=== PATIENT | female | born 1980 | race Caucasian/White ===

== ENCOUNTER 2023-07-19 11:23 | Emergency (ER) | payer BC, SELFPAY ==
[2023-07-19] VITALS (16 sets, daily range): BP systolic 128–164; BP diastolic 70–93; PULSE 95–123; RESP 12–27; O2SAT 95–99; BMI 49.4
--- NOTE | 2023-07-19 11:39 | ECG_ITS ---
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
--- NOTE | 2023-07-19 11:39 | XR_ITS ---
The [address] [address] Patient Name: LINDA GONZALEZ MRN: [id number] date: 1980 Sex: F Assigned Patient Location: ED.MAIN Current Patient Location: ER Accession/Order Number: [id number] Exam Date: 07/19/2023 12:33 Report Date: 07/19/2023 12:47 At the request of: LISA MARES Procedure: XR chest 1V EXAMINATION: XR chest 1V 07/19/2023 9:46 AM PST HISTORY: CP TECHNIQUE: Single frontal view of the chest acquired. COMPARISONS: None. FINDINGS: Lines/tubes/other: None. Heart and mediastinum: The heart and the mediastinum are within normal limits for technique. Bones: No acute osseous abnormality. Lungs: The lungs are clear. There is no evidence of pneumonia or pulmonary edema. Pleura: There is no significant pleural effusion or pneumothorax. Other: None. XR/XR chest 1V IMPRESSION: No acute cardiopulmonary abnormality. Electronically authenticated by: MARGE FRITZ Date: 07/19/2023 12:47
--- NOTE | 2023-07-19 11:39 | CT_ITS ---
The [address] [address] Patient Name: LINDA GONZALEZ MRN: [id number] date: 1980 Sex: F Assigned Patient Location: ED.MAIN Current Patient Location: Accession/Order Number: [id number] Exam Date: 07/19/2023 12:33 Report Date: 07/19/2023 12:52 At the request of: LISA MARES Procedure: CT head/brain wo con EXAM: CT head/brain wo con HISTORY: new numbness all over the right body COMPARISON: None. TECHNIQUE: Contiguous transaxial images were obtained from skull base to vertex without administration of intravenous contrast. Dose reduction: mA and/or kV are were adjusted by automated exposure control software based upon patients height and weight. FINDINGS: There is no focal scalp soft tissue swelling or acute calvarial fracture. The visualized globes and orbits are grossly normal. There is paranasal sinus mucosal thickening with partial opacification of ethmoid air cells and bilateral maxillary sinus air-fluid levels. Bilateral mastoid air cells are clear. The ventricles and sulci are normal and symmetric bilaterally. There is no intraparenchymal hemorrhage, extraaxial fluid collection, mass lesion, or acute large vessel ischemia by noncontrast CT. CT/CT head/brain wo con IMPRESSION: 1. No acute intracranial hemorrhage or acute large territory ischemia by noncontrast CT. If the patient has a focal neurologic deficit or there is clinical suspicion for acute cerebrovascular accident, brain MRI would be recommended for further evaluation. Electronically authenticated by: EDD MORTENSEN Date: 07/19/2023 12:52
[2023-07-19 11:56] LABS: Basophils Percent Auto 0.4 % (0.2-2.0); Eosinophils Absolute Auto 0.2 10^3/uL (0.0-0.7); Eosinophils Percent Auto 2.3 % (0.9-7.0); Hematocrit 46.4 % (36.0-48.0); Hemoglobin 15.4 g/dL (12.0-16.0); Immature Granulocytes Abs Auto 0.02 10^3/uL (0.00-0.03); Immature Granulocytes Pct Auto 0.2 % (0.0-0.5); Lymphocytes Absolute Auto 3.6 10^3/uL (1.2-3.8); Lymphocytes Percent Auto 34.9 % (20.5-60.0); Mean Corpuscular HGB Conc 33.2 g/dL (29.9-35.2); Mean Corpuscular Hemoglobin 30.9 pg (26.7-34.0); Mean Platelet Volume 9.3 fL (9.5-13.5); Monocytes Absolute Auto 0.6 10^3/uL (0.3-0.8); Monocytes Percent Auto 5.4 % (1.7-12.0); Neutrophils Absolute Auto 5.9 10^3/uL (1.4-6.5); Neutrophils Percent Auto 56.8 % (43.0-75.0); Platelet Count 193 10^3/uL (150-450); Red Blood Count 4.99 10^6/uL (4.20-5.40); Red Cell Distribution Width 13.1 % (11.0-15.0); White Blood Count 10.4 10^3/uL (4.0-11.0)
[2023-07-19 12:17] LABS: Alanine Aminotransferase 40 U/L (14-59); Albumin Globulin Ratio 1.1; Albumin Level 3.8 g/dL (3.4-5.0); Alkaline Phosphatase 67 U/L (46-116); Anion Gap 12.4; Aspartate Amino Transferase 19 U/L (15-37); BUN Creatinine Ratio 13.3; Bilirubin Total 0.6 mg/dL (0.2-1.0); Calcium 9.2 mg/dL (8.5-10.1); Carbon Dioxide 25.4 mmol/L (21.0-32.0); Chloride 103 mmol/L (98-107); Estimated GFR (African America >60 (>=60); Estimated GFR (Non-African Ame >60 (>=60); Globulin 3.6 g/dL; Glucose 169 mg/dL (74-106); Potassium 3.8 mmol/L (3.5-5.1); Sodium 137 mmol/L (136-145); Total Protein 7.4 g/dL (6.4-8.2); Troponin I High Sensitivity <4.0 pg/mL (4.0-51.3)
[2023-07-19 12:20] LABS: HCG Qualitative NEGATIVE (NEGATIVE)
[2023-07-19] MEDS: KETOROLAC TROMETHAMINE 30 MG/ML VIAL 15 MG IVP (12:41)
[2023-07-19] MEDS: PROMETHAZINE HCL 25 MG/ML VIAL 12.5 MG IV (12:42)
--- NOTE | 2023-07-19 13:41 | ED_ITS ---
HPI - General Adult General Chief complaint: Neuro Symptoms/Deficit Stated complaint: FACIAL/EXTREMITY WEAKNESS Time Seen by Provider: 07/19/23 11:38 Source: patient Mode of arrival: walk-in Limitations: no limitations History of Present Illness HPI narrative: Presenting to us with a history of ophthalmic migraine she apparently have an episode where she had a ocular migraine according to her telescoping of the v [email or web address]. The patient after that started having numbness and tingling around her right side of the face as well as upper and lower extremity. She was tearful and crying and feeling very anxious. The patient also had a fall yesterday but that was not related to this and she did not hit her head or anything. The patient denies any dizziness nausea vomiting or any abdominal pain she did mention having chest pain while crying. The pain was retrosternal no other complaints of dizziness or shortness of breath. Related Data Allergies Allergy/AdvReac Type Severity Reaction Status Date / Time No Known Drug Allergies Allergy Verified 07/19/23 11:31 Review of Systems ROS Status of ROS 10 or more systems reviewed and unremark able except as noted in history and below Exam Narrative Exam Narrative: Nurses notes and vital signs reviewed and patient is not hypoxic. General: Well-appearing and in no apparent distress. Skin: Warm, dry, no pallor noted. No rash. Head: Normocephalic, atraumatic. Neck: Supple, non-tender. Eye: Pupils are equal, round and EOMI. No scleral icterus. Ears, Nose, Mouth, and Throat: TM are clear, no nasal mucosal hypertrophy. Oral mucosa is moist, no posterior oropharynx erythema, uvula is mid-line Cardiovascular: Regular Rate and Rhythm without murmur, gallop or rub. Respiratory: No accessory muscle use or respiratory distress. Lungs are clear to auscultation, no wheezing, rales or rhonchi Chest Wall: no tenderness Back: No midline thoracic or lumbar vertebral tenderness. No CVA tenderness Musculoskeletal: normal ROM, no calf or popliteal tenderness, no lower extremity edema/swelling GI: Abdomen is soft, non-distended. Normal bowel sounds. No masses appreciated. No tenderness to palpation. No rebound, guarding, or rigidity noted. Neurological: A&O x4. No cranial nerve dysfunction observed. No truncal ataxia. Moves all extremities. Sensation intact. Psychiatric: Cooperative and interactive. Normal mood and affect. Constitutional Vital Signs, click to edit/add: Last Vital Signs Pulse 103 H 07/19/23 13:00 Resp 22 07/19/23 13:00 BP 142/70 H 07/19/23 12:31 Pulse Ox 95 07/19/23 12:01 O2 Del Method Room Air 07/19/23 11:31 Course Vital Signs Vital signs: Vital Signs Pulse Rate 121 H 07/19/23 11:31 Respiratory Rate 18 07/19/23 11:31 Blood Pressure 163/92 H 07/19/23 11:31 Pulse Oximetry 99 07/19/23 11:31 Oxygen Delivery Method Room Air 07/19/23 11:31 Pulse Rate 103 H 07/19/23 13:00 Respiratory Rate 22 07/19/23 13:00 Blood Pressure 142/70 H 07/19/23 12:31 Pulse Oximetry 95 07/19/23 12:01 Oxygen Delivery Method Room Air 07/19/23 11:31 Medical Decision Making MDM Narrative Medical decision making narrative: The patient EKG showing sinus rhythm with a heart rate of [address] elevation or depression. The patient open presentation with anxious she did had a CBC chemistry showing no acute pathology and her CT head as well as chest x-ray showed no acute pathology as well with a negative troponin. The patient presentation is mostly secondary to ophthalmic migraine and panic attack The patient was feeling much better after being comforted in the ER she also mentioned that she had not been evaluated by neurologist and she was to follow- up with her primary care doctor to be referred to a neurologist as outpatient The patient is to follow up with primary care physician in next 2-3 days or to return to the emergency department should any of the signs or symptoms worsen or new symptoms develop. The patient agrees with the following Diagnosis and Treatment plan and the patient will be discharged home. Lab Data Labs: Lab Results 07/19/23 Range/Units 11:45 WBC 10.4 (4.0-11.0) 10^3/uL RBC 4.99 (4.20-5.40) 10^6/uL Hgb 15.4 (12.0-16.0) g/dL Hct 46.4 (36.0-48.0) % MCV 93.0 (81.0-99.0) fL MCH 30.9 (26.7-34.0) pg MCHC 33.2 (29.9-35.2) g/dL RDW 13.1 (11.0-15.0) % Plt Count 193 (150-450) 10^3/uL MPV 9.3 L (9.5-13.5) fL Neut % (Auto) 56.8 (43.0-75.0) % Lymph % (Auto) 34.9 (20.5-60.0) % [place] % (Auto) 5.4 (1.7-12.0) % Eos % (Auto) 2.3 (0.9-7.0) % Baso % (Auto) 0.4 (0.2-2.0) % Neut # (Auto) 5.9 (1.4-6.5) 10^3/uL Lymph # (Auto) 3.6 (1.2-3.8) 10^3/uL [place] # (Auto) 0.6 (0.3-0.8) 10^3/uL Eos # (Auto) 0.2 (0.0-0.7) 10^3/uL Baso # (Auto) 0.0 (0.0-0.1) 10^3/uL Abs Immat Gran (auto) 0.02 (0.00-0.03) 10^3/uL Imm/Tot Granulo (auto) 0.2 (0.0-0.5) % Sodium 137 (136-145) mmol/L Potassium 3.8 (3.5-5.1) mmol/L Chloride 103 (98-107) mmol/L Carbon Dioxide 25.4 (21.0-32.0) mmol/L Anion Gap 12.4 BUN 10.0 (7.0-18.0) mg/dL Creatinine 0.75 (0.55-1.02) mg/dL Est GFR ( Amer) >60 (>=60) Est GFR (Non-Af Amer) >60 (>=60) BUN/Creatinine Ratio 13.3 Glucose 169 H (74-106) mg/dL Calcium 9.2 (8.5-10.1) mg/dL Total Bilirubin 0.6 (0.2-1.0) mg/dL AST 19 (15-37) U/L ALT 40 (14-59) U/L Alkaline Phosphatase 67 (46-116) U/L Troponin I High Sens <4.0 L (4.0-51.3) pg/mL Total Protein 7.4 (6.4-8.2) g/dL Albumin 3.8 (3.4-5.0) g/dL Globulin 3.6 g/dL Albumin/Globulin Ratio 1.1 Serum HCG, Qual Negative (NEGATIVE) Discharge Plan Discharge Chief Complaint: Neuro Symptoms/Deficit Clinical Impression: Ocular migraine Patient Disposition: Home, Self-Care Time of Disposition Decision: 13:42 Condition: Good Instructions: Migraine Headache (ED) Stand Alone Forms: Portal Instructions Referrals: MERRY CASTILLO [Primary Care Provider] - 1 week
== END 2023-07-19 14:02 | disposition home or self-care (01) ==
PROVIDERS: Emergency Provider Emergency Medicine; PCP Family Medicine
DX: G43.B0 Ophthalmoplegic migraine, not intractable (principal); R07.9 Chest pain, unspecified
CPT/HCPCS: 36415; 70450; 71045; 80053; 84484; 84703; 85025; 93005; 99285; J1885; J2250

== ENCOUNTER 2024-01-15 06:30 | Outpatient (OUT) | payer BC, SELFPAY ==
--- OUTSIDE RECORDS SUMMARY | 2024-01-15 06:33 | XMS_ITS | CCD ---
Author Organization [facility] Care Team Providers Care Freelance Web Designer Name Role Phone SILVINA, DR FELICITAS Del Cid Attending Unavailable COOL, DR FELICITAS Del Cid Consulting Unavailable ANNA, DR SOUSA Primary Care Unavailable SILVINA, DR FELICITAS Del Cid Admitting Unavailable ANNA, DR SOUSA Admitting Unavailable ANNA, DR SOUSA Attending Unavailable ANNA, DR SOUSA Attending Unavailable ANNA, DR SOUSA Consulting Unavailable ANNA, DR SOUSA Admitting Unavailable Anna, MD Shan Miller Primary Care Provider MD Eric Michael Attending Provider Eric Michael Attending Unavailable Eric Michael Admitting Unavailable Shan Castillo Primary Care Unavailable SONG HARPER Attending Unavailable SHAN CASTILLO Attending Unavailable SHAN CASTILLO Attending Unavailable SHAN CASTILLO Referring Unavailable SHAN CASTILLO Attending Unavailable SHAN CASTILLO Attending Unavailable SHAN CASTILLO Attending Unavailable Problems Active Problems Problem Classification Problem Date Documented Da te Episodic/Chronic Anxiety disorders (1 source) Anxiety disorder, unspecified; Translations: [ANXIETY DISORDER UNSPECIFIED] Onset: 01-22-2021 Chronic Essential hypertension (1 source) Essential (primary) hypertension; Translations: [ESSENTIAL PRIMARY HYPERTENSION] Onset: 01-22-2021 Chronic Neoplasms of unspecified nature or uncertain behavior (1 source) Neoplasm of unspecified behavior of bone, soft tissue, and skin; Translations: [Neoplasm of unspecified behavior of bone, soft tissue, and skin] Onset: 02-15-2023 Episodic Nonspecific chest pain (4 sources) Chest pain, unspecified; Translations: [CHEST PAIN UNSPECIFIED] Onset: 01-19-2021 Episodic Other aftercare (1 source) Other jail (current) drug therapy; Translations: [OTH [facility] CURRENT DRUG THERAPY] Onset: 01-22-2021 Episodic Other non-traumatic joint disorders (1 source) Pain in right shoulder; Translations: [PAIN IN RIGHT SHOULDER] Onset: 01-22-2021 Episodic Substance-related disorders (1 source) Nicotine dependence, cigarettes, uncomplicated; Translations: [NICOTINE DEPEND CIGARETTES UNCOMP] Onset: 01-22-2021 Chronic Past or Other Problems Problem Classification Problem Date Documented Da te Episodic/Chronic Immunizations and screening for infectious disease (4 sources) Contact with and (suspected) exposure to other viral communicable diseases; Translations: [CONTCT EXPS OTH VIRL COMMUNICABL DZ] Onset: 05-14-2020 Episodic Other nervous system disorders (1 source) Parageusia; Translations: [PARAGEUSIA] Onset: 05-19-2020 Episodic Results Test Name Value Interpretation Reference Range Facility BI MAMMOGRAM SCREENING TOMOS YJOHNIS BILATERALon 07-19-2023 BI MAMMOGRAM SCREENING TOMOSYNTHESIS BILATERAL This is a summary report. The complete report is available in the patient's medical record. If you cannot access the medical record, please contact the sending organization for a detailed fax or copy. EXAMINATION: BI MAMMOGRAM SCREENING TOMOSYNTHESIS BILATERAL CLINICAL HISTORY: screening COMPARISON: None. Baseline. RESULT: 3-D tomosynthesis imaging of the bilateral breasts was performed. Density: Scattered fibroglandular density [2] There are no suspicious masses or asymmetries, areas of architectural distortion or suspicious areas of microcalcifications. IMPRESSION: BIRADS 1 - Negative Recommended follow-up: Routine Screening Mamm Board Certified Radiologists. Accredited by the ACR and FDA. MAMMOGRAPHY IS VERY IMPORTANT TO YOUR HEALTH. THE [place] [employer]ET[employer] GUIDELINES RECOMMEND THAT WOMEN 40 YEARS OF AGE AND OLDER SHOULD HAVE A MAMMOGRAM EVERY YEAR. A REMINDER LETTER WILL BE SENT AT THE APPROPRIATE TIME. THIS FACILITY UTILIZES A REMINDER SYSTEM TO ENSURE ALL PATIENTS RECEIVE REMINDER NOTIFICATIONS AT THE APPROPRIATE TIME BASED ON THE RECOMMENDATIONS OF THIS EXAM. THIS INCLUDES REMINDERS FOR ROUTINE SCREENING MAMMOGRAMS, DIAGNOSTIC MAMMOGRAMS IN WHICH THE PATIENT IS ASKED TO RETURN FOR ADDITIONAL VIEWS, OR OTHER BREAST IMAGING INTERVENTIONS WHEN APPROPRIATE. THE PATIENT WILL BE PLACED IN THE APPROPRIATE REMINDER SYSTEM INCLUDING A REMINDER AT THE APPROPRIATE TIME FOR ANY PENDING ADDITIONAL VIEWS. ELECTRONICALLY SIGNED BY: Trey Lyons MD Normal Not Available Sav 02-15-2023 L ---- Specimen: [id number] Received: 02/16/23 Status: ROSA Marcial Num: [id number] Spec Type: Surgical Subm Dr: Eric Michael MD Tissues: A Skin-Other than Cyst, tag, debridement or plastic repair (LT LOWER LEG) Procedures: MART 1/PELON A/2, HE/5, Gross/Micro L4, CD10/2, CD68/2, HMB45/2 Age/ Patient Sex Location Account Attending Physician Millicent Gonzalez 42/F [place] [id number] Eric Michael MD SPEC NUM: [id number] RECD: 02/16/23 STATUS: ROSA MARCIAL NUM: [id number] JEROD: 08/23/23-[address]: Eric Michael MD ENTERED: 02/16/[address] [facility] DR: SPEC TYPE: Surgical DEPT: S ORDERED: MART 1/PELON A/2, HE/5, Gross/Micro L4, CD10/2, CD68/2, HMB45/2 ORDERED: MART 1/PELON A/2, HE/5, Gross/Micro L4, CD10/2, CD68/2, HMB45/2 Pathological Diagnosis Skin lesion, left lower leg, excision: - 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 The second tissue contains a 0.5 x 0.5 cm area of depression. The tissues are sectioned. Entirely submitted in two cassettes labeled A1-A2. Specimen: [id number] Received: 02/16/23 Status: ROSA Aniket Num: [id number] Spec Type: Surgical Subm Dr: Eric Michael MD Tissues: A Skin-Other than Cyst, tag, debridement or plastic repair (LT LOWER LEG) Procedures: MART 1/PELON A/2, HE/5, Gross/Micro L4, CD10/2, CD68/2, HMB45/2 Patient: Millicent Gonzalez [id number] (Continued) Specimen: [id number] Received: 02/16/23 (Continued) Signed (signature on file) Jae Felipe MD 02/23/23 1725 Specimen: [id number] Received: 02/16/23 Status: ROSA Marcial Num: [id number] Spec Type: Surgical Subm Dr: Eric Michael MD Tissues: A Skin-Other than Cyst, tag, debridement or plastic repair (LT LOWER LEG) Procedures: MART 1/PELON A/2, HE/5, Gross/Micro L4, CD10/2, CD68/2, HMB45/2 Patient: Millicent Gonzalez [id number] (Continued) Specimen: [id number] Received: 02/16/23 (Continued) Microscopic Description Two H E slides reviewed. The microscopic examination confirms the diagnosis. CPT Codes 85449 Specimen: [id number] Received: 02/16/23 Status: ROSA Marcial Num: [id number] Spec Type: Surgical Subm Dr: Eric Michael MD Tissues: A Skin-Other than Cyst, tag, debridement or plastic repair (LT LOWER LEG) Procedures: MART 1/PELON A/2, HE/5, Gross/Micro L4, CD10/2, CD68/2, HMB45/2 Patient: Millicent Gonzalez [id number] (Continued) Signed (signature on file) Jae Felipe MD 02/23/23 1725 Normal [facility] Hemoglobin A1Con 06-02-2021 EAG 142.72 Normal [facility] Comment on above: Performed By: #### A 1C #### [facility] [address] [place], [place] [id number] HbA1c (Bld) [Mass fraction] 6.6 % High 4.0-6.0 [facility] Comment on above: Performed By: #### A 1C #### [facility] [address], [place] [id number] CARDIAC FELICITAS ADMITon 021 CK [Catalytic activity/Vol] 85 U/L Normal 30-135 [facility] Comment on above: Performed By: #### C LANCE, CMADM #### [facility] [address] [place], [place] [address] [place] Espinoza CK.MB [Mass/Vol] 0.58 ng/mL Normal <=2.37 [facility] Comment on above: Performed By: #### C LANCE, CMADM #### [facility] [address] [place], [place] [address] [place] Espinoza HSTROP <4.0 Normal 4.0-35.5 [facility] Comment on above: Result Comment: CUT- OFF POINTS HAVE BEEN ESTABLISHED BASED ON THE FOURTH UNIVERSAL DEFINITIONS OF MYOCARDIAL INFARCTION. THE UPPER REFERENCE LIMIT (URL) OF TROPONIN, DEFINED THE 99TH PERCENTILE OF cTnI DISTRIBUTION IN A REFERENCE POPULATION, HAS BEEN CONFIRMED THE DECISION THRESHOLD FOR OK DIAGNOSIS. Performed By: #### C LANCE, JUSTENDM #### [facility] [address] [place] [id number] [place] Olga ALICIA 21.0 ng/mL Normal <=61.5 [facility] Comment on above: Performed By: #### C LANCE, JUSTENDM #### [facility] [address] [place], [place] [address] [place] CBC AUTO DIFFon 01-20-2021 BASO # 0.1 103/ul Normal 0.0-0.1 [facility] Comment on above: Performed By: #### C BC #### [facility] [address] [place], [place] [address] [place] Basophils/100 WBC (Bld) 0.4 % Normal 0.2-2.0 [facility] Comment on above: Performed By: #### C BC #### [facility] [address] [place], [place] [address] [place] EO # 0.2 103/ul Normal 0.0-0.7 [facility] Comment on above: Performed By: #### C BC #### [facility] [address] [place], [place] [address] [place] Eosinophils/100 WBC (Bld) 1.6 % Normal 0.9-7.0 [facility] Comment on above: Performed By: #### C BC #### [facility] [address] [place], [place] [address] [place] Erythrocyte distribution width (RBC) [Ratio] 13.2 % Normal 11.0-15.0 [facility] Comment on above: Performed By: #### C BC #### [facility] [address] [place], [place] [address] [place] Ol[place] Hematocrit (Bld) [Volume fraction] 42.6 % Normal 36.0-48.0 [facility] Comment on above: Performed By: #### C BC #### [facility] [address] [place], [place] [address] [place] Hemoglobin (Bld) [Mass/Vol] 14.1 g/dL Normal 12.0-16.0 [facility] Comment on above: Performed By: #### C BC #### [facility] [address] [place] [id number] [place] IG # 0.04 10e3/ul Critically high 0.00-0.03 [facility] Comment on above: Performed By: #### C BC #### [facility] [address] [place] [id number] [place] IG % 0.4 % Normal 0.0-0.5 [facility] Comment on above: Performed By: #### C BC #### [facility] [address] [place] [address] [place]ga LYMPH # 4.4 103/ul Critically high 1.2-3.8 [facility] Comment on above: Performed By: #### C BC #### [facility] [address] [place] [address] [place] Olga Lymphocytes/100 WBC (Bld) 39.5 % Normal 20.5-60.0 [facility] Comment on above: Performed By: #### C BC #### [facility] [address] [place], [place] [address] [place] MANUAL DIFF REQ NO Normal [facility] Comment on above: Performed By: #### C BC #### [facility] [address] [place], [place] [address] [place] MCH (RBC) [Entitic mass] 29.4 pg Normal 26.7-34.0 [facility] Comment on above: Performed By: #### C BC #### [facility] [address] [place] [address] [place] Olga MCHC (RBC) [Mass/Vol] 33.1 g/dL Normal 29.9-35.2 [facility] Comment on above: Performed By: #### C BC #### [facility] [address] [place], [place] [address] [place] MCV (RBC) [Entitic vol] 88.8 fL Normal 81.0-99.0 [facility] Comment on above: Performed By: #### C BC #### [facility] [address] [place] [id number] [place] MONO # 0.6 103/ul Normal 0.3-0.8 [facility] Comment on above: Performed By: #### C BC #### [facility] [address] [place], [place] [address] Heavenchela Stanleyen Monocytes/100 WBC (Bld) 5.4 % Normal 1.7-12.0 [facility] Comment on above: Performed By: #### C BC #### [facility] [address] [place], [place] [address] [place] NEUT # 5.9 103/ul Normal 1.4-6.5 [facility] Comment on above: Performed By: #### C BC #### [facility] [address] [place], [place] [address] [place] Espinoza Neutrophils/100 WBC (Bld) 52.7 % Normal 43.0-75.0 [facility] Comment on above: Performed By: #### C BC #### [facility] [address] [place], [place] [address] [place]la Espinoza Platelet mean volume (Bld) [Entitic vol] 9.5 fL Normal 9.5-13.5 [facility] Comment on above: Performed By: #### C BC #### [facility] [address] [place], [place] [address] [place]ga PLT 211 103/ul Normal 150-450 [facility] Comment on above: Performed By: #### C BC #### [facility] [address] [place], [place] [address] [place] RBC 4.80 106/ul Normal 4.20-5.40 [facility] Comment on above: Performed By: #### C BC #### [facility] [address] [place], [place] [address] [place] WBC 11.2 103/ul Critically high 4.0-11.0 [facility] Comment on above: Performed By: #### C BC #### [facility] [address] [place], [place] [address] [place] Espinoza PROF 14(COMP METB)on 021 Albumin [Mass/Vol] 3.8 g/dL Normal 3.5-5.0 [facility] Comment on above: Performed By: #### C LANCE, DOV #### [facility] [address] [place] [id number] [place] Albumin/Globulin [Mass ratio] 1.0 {ratio} Normal [facility] Comment on above: Performed By: #### C LANCE, DOV #### [facility] [address] [place] [address] [place] ALP [Catalytic activity/Vol] 74 U/L Normal 38-126 [facility] Comment on above: Performed By: #### C LANCE, DOV #### [facility] [address] [place] [address] [place] ALT [Catalytic activity/Vol] 29 U/L Normal 9-52 [facility] Comment on above: Performed By: #### C LANCE, DOV #### [facility] [address] [place] [address] [place] Anion gap [Moles/Vol] 15.7 mmol/L Normal [facility] Comment on above: Performed By: #### C LANCE, DOV #### [facility] [address] [place] [address] [place] AST [Catalytic activity/Vol] 11 U/L Critically low 14-36 [facility] Comment on above: Performed By: #### C LANCE, DOV #### [facility] [address] [place] [address] [place] Bilirubin [Mass/Vol] 0.3 mg/dL Normal 0.2-1.3 [facility] Comment on above: Performed By: #### C LANCE, DOV #### [facility] [address] [place], [place] [address] [place] Calcium [Mass/Vol] 9.2 mg/dL Normal 8.4-10.2 [facility] Comment on above: Performed By: #### C LANCE, DOV #### [facility] [address] [place] [phone] [place] Chloride [Moles/Vol] 104 mmol/L Normal 98-107 [facility] Comment on above: Performed By: #### C LANCE, CMADM #### [facility] [address] [place] [address] [place] CO2 [Moles/Vol] 24.2 mmol/L Normal 22.0-30.0 [facility] Comment on above: Performed By: #### C LANCE, CMADM #### [facility] [address] [place] [address] [place] Creatinine [Mass/Vol] 0.73 mg/dL Normal 0.52-1.04 [facility] Comment on above: Performed By: #### C LANCE, CMADM #### [facility] [address] [place] [address] [place] EGFR-AF [place] >60 Normal >=60 [facility] Comment on above: Performed By: #### C LANCE, CMADM #### [facility] [address] [place] [address] [place] EGFR-NON AF [place] >60 Normal >=60 [facility] Comment on above: Performed By: #### C LANCE, CMADM #### [facility] [address] [place] [address] [place] Globulin (S) [Mass/Vol] 3.8 g/dL Normal [facility] Comment on above: Performed By: #### C LANCE, CMADM #### [facility] [address] [place] [address] [place] Glucose [Mass/Vol] 143 mg/dL Critically high 74-106 [facility] Comment on above: Performed By: #### C LANCE, CMADM #### [facility] [address] [place] [address] [place] Potassium [Moles/Vol] 3.9 mmol/L Normal 3.4-5.0 [facility] Comment on above: Performed By: #### C LANEC, CMADM #### [facility] [address] [place] [address] [place] Protein [Mass/Vol] 7.6 g/dL Normal 6.1-8.2 [facility] Comment on above: Performed By: #### C MP, CMADM #### [facility] [address] [place] [address] [place] Espinoza Sodium [Moles/Vol] 140 mmol/L Normal 137-145 [facility] Comment on above: Performed By: #### C MP, CMADM #### [facility] [address] [place] [address] [place] Urea nitrogen [Mass/Vol] 15.0 mg/dL Normal 7.0-17.0 [facility] Comment on above: Performed By: #### C LANCE, CMADM #### [facility] [address] [place] [address] Heavenchela Espinoza Urea nitrogen/Creatinin e [Mass ratio] 20.5 mg/mg Normal [facility] Comment on above: Performed By: #### C LANCE, CMADM #### [facility] [address] [place] [address] [place] Espinoza COVID-19 PCRon 05-16-2020 SARS-CoV-2 (COVID-19) RNA GRABIEL+probe Ql (Unsp spec) Not detected Normal Not Detected [facility] Comment on above: Result Comment: This nucleic acid amplification test was developed and its performance characteristics determined by [employer]. Nucleic acid amplification tests include PCR and TMA. This test has not been FDA cleared or approved. This test has been authorized by FDA under an Emergency Use Authorization (EUA). This test is only authorized for the duration of time the declaration that circumstances exist justifying the authorization of the emergency use of in vitro diagnostic tests for detection of SARS-CoV-2 virus and/or diagnosis of COVID-19 infection under section 564(b)(1) of the Act, 21 U.S.C. 360bbb-3(b) (1), unless the authorization is terminated or revoked sooner. When diagnostic testing is negative, the possibility of a false negative result should be considered in the context of a patient's recent exposures and the presence of clinical signs and symptoms consistent with COVID-19. An individual without symptoms of COVID-19 and who is not shedding SARS-CoV-2 virus would expect to have a negative (not detected) result in this assay. Performed By: #### C VDPCR #### [facility] [address] [place] [address] [place] Espinoza Encounters Encounter Date Encounter Type Care Provider Facility Start: 12-25-2023 End: 12-25-2023 ambulatory RUGEN M ANNA Not Available Start: 08-22-2023 End: 08-22-2023 ambulatory RUGEN M ANNA Not Available Start: 07-19-2023 End: 07-19-2023 ambulatory RUGEN M ANNA Not Available Start: 07-18-2023 End: 07-18-2023 ambulatory RUGEN M ANNA Not Available Start: 06-27-2023 End: 06-27-2023 ambulatory SONG Rosalina HARPER Not Available Start: 06-20-2023 End: 06-20-2023 ambulatory RUGEN M ANNA Not Available Start: 05-23-2023 End: 05-23-2023 ambulatory RUGEN M ANNA Not Available Start: 02-15-2023 End: 02-15-2023 ambulatory Eric Michael Facility:[facility] Start: 02-15-2023 End: 02-15-2023 ambulatory MD Shan Castillo Work Phone: [facility] Work Phone: Start: 02-15-2023 End: 02-15-2023 Departed Referred MD Shan Castillo Work Phone: [facility] [place] Work Phone: Start: 01-19-2021 End: 01-20-[address] FELICITAS COOL Facility:[facility] Start: 05-20-[address] SHAN CASTILLO Facility: [facility] Start: 05-14-2020 End: 05-15-[address] SHAN CASTILLO Facility:[facility] Payers Date Payer Category Payer Unknown [id number] 1980 Unknown [id number] 2.16.84 [id number] 1980 Unknown [id number] 2.16.84 [id number] 1980 Unknown [id number] 2.16.84 [id number] 1980 Unknown [id number] 2.16.84 [id number] 1980 Unknown [id number] 2.16.84 [id number] 1980 Unknown [id number] 2.16.84 0.1.695705.3.579.2.1259 1980 Unknown [id number] 2.16.84 0.1.939230.3.579.2.1259 1980 Unknown [id number] 2.16.840 .[id number] 1980 Unknown [id number] 2.16.840 .1.153945.3.579.2.1259 1980 Unknown [id number] 2.16.840 .[id number] 1959 Self-pay 1959 Unknown [id number] Unknown O [id number] Unknown HCAP/HFA/FAP Active [id number] Unknown [id number] 2.16.8 [id number] Social History Date Type Detail Facility Tobacco smoking stat [facility] Unknown if ever smoked [facility] Work Phone: Start: 1980 Sex Assigned At Female F [facility] Evaluation note Note Date & Type Note Facility Evaluation note No assessment information availa ble [facility] Work Phone: Summary Purpose Family History No Family History Records FoundNo Family History Records FoundNo Family History Records FoundNo Family History Records Found Advance Directives No Advanced Directives Records FoundNo Advanced Directives Records FoundNo Advanced Directives Records FoundNo Advanced Directives Records Found Additional Source Comments INFORMATION SOURCE (unrecogn ized section and content) DATE CREATED AUTHOR 01/24/2021 [facility] DATE CREATED AUTHOR AUTHOR'S ORGANIZ ATION 06/03/2021 [facility] DATE CREATED AUTHOR AUTHOR'S ORGANIZ ATION 02/24/2023 [facility] DATE CREATED AUTHOR AUTHOR'S ORGANIZ ATION 12/25/2023 [facility] EPIC Care Teams (unrecognized sec tion and content) Team Status: Active Member Role Status Dates Shan Castillo MD Primary Care Provider Active Team Status: Inactive Member Role Status Dates Shan Castillo MD Primary Care Provider Active Eric Michael MD Attending Provider Active Goals (unrecognized section and content) Goals may be documented in a n alternate section FOR RECORDS PERTAINING TO PATIENTS WHO ARE OR HAVE BEEN ENROLLED IN A CHEMICAL DEPENDENCY/SUBSTANCEABUSE PROGRAM, SOME INFORMATION MAY BE OMITTED. This clinical summary was aggregated from multiple sources. Caution should be exercised in using it in the provision of clinical care. This summary normalizes information from multiple sources, and as a consequence, information in this document may materially change the coding, format and clinical context of patient data. In addition, data may be omitted in some cases. CLINICAL DECISIONS SHOULD BE BASED ON THE PRIMARY CLINICAL RECORDS. [facility]. provides no warranty or guarantee of the accuracy or completeness of information in this document.
[2024-01-15 07:12] LABS: Basophils Absolute Auto 0.1 10^3/uL (0.0-0.1); Basophils Percent Auto 0.4 % (0.2-2.0); Eosinophils Absolute Auto 0.3 10^3/uL (0.0-0.7); Eosinophils Percent Auto 2.8 % (0.9-7.0); Hemoglobin 16.7 g/dL (12.0-16.0); Immature Granulocytes Abs Auto 0.02 10^3/uL (0.00-0.03); Immature Granulocytes Pct Auto 0.2 % (0.0-0.5); Lymphocytes Absolute Auto 3.7 10^3/uL (1.2-3.8); Lymphocytes Percent Auto 31.8 % (20.5-60.0); Mean Corpuscular HGB Conc 33.4 g/dL (29.9-35.2); Mean Corpuscular Hemoglobin 31.5 pg (26.7-34.0); Mean Corpuscular Volume 94.2 fL (81.0-99.0); Mean Platelet Volume 9.4 fL (9.5-13.5); Monocytes Absolute Auto 0.7 10^3/uL (0.3-0.8); Neutrophils Absolute Auto 6.8 10^3/uL (1.4-6.5); Neutrophils Percent Auto 58.8 % (43.0-75.0); Platelet Count 198 10^3/uL (150-450); Red Blood Count 5.31 10^6/uL (4.20-5.40); Red Cell Distribution Width 12.9 % (11.0-15.0); White Blood Count 11.6 10^3/uL (4.0-11.0)
[2024-01-15 07:41] LABS: Alanine Aminotransferase 27 U/L (14-59); Albumin Globulin Ratio 1.1; Alkaline Phosphatase 65 U/L (46-116); Anion Gap 12.6; Aspartate Amino Transferase 17 U/L (15-37); BUN Creatinine Ratio 19.7; Bilirubin Total 0.9 mg/dL (0.2-1.0); Calcium 9.2 mg/dL (8.5-10.1); Carbon Dioxide 27.4 mmol/L (21.0-32.0); Chloride 103 mmol/L (98-107); Chol HDL Ratio 3.3; Cholesterol 164 mg/dL (<=200); Estimated GFR (African America >60 (>=60); Estimated GFR (Non-African Ame >60 (>=60); Globulin 3.6 g/dL; Glucose 93 mg/dL (74-106); HDL Cholesterol 49 mg/dL (40-60); Sodium 138 mmol/L (136-145); Total Protein 7.6 g/dL (6.4-8.2); Triglycerides 70 mg/dL (<=150)
== END 2024-01-15 06:31 | disposition home or self-care (01) ==
LOC: LAB 06:31
PROVIDERS: PCP Family Medicine; Visit Provider Family Medicine
DX: Z00.00 Encounter for general adult medical examination without abnormal findings (principal); E11.65 Type 2 diabetes mellitus with hyperglycemia; I10 Essential (primary) hypertension; Z13.220 Encounter for screening for lipoid disorders
CPT/HCPCS: 36415; 80053; 80061; 85025

== ENCOUNTER 2025-03-11 23:53 | Emergency (ER) | payer BC, SELFPAY ==
[2025-03-11 23:58] VITALS: O2SAT 98
[2025-03-11 23:59] VITALS: BP 148/94; O2SAT 97
[2025-03-12] VITALS (11 sets, daily range): BP systolic 120–153; BP diastolic 78–99; PULSE 75–101; TEMP 37; O2SAT 93–98; BMI 43.9
--- NOTE | 2025-03-12 | ECG_ITS ---
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
--- OUTSIDE RECORDS SUMMARY | 2025-03-12 00:09 | XMS_ITS | CCD ---
Author Organization [facility] CliniSyne Care Team Providers Care 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 Name Role Phone SILVINA, DR FELICITAS Del Cid Attending Unavailable SILVINA, DR FELICITAS Del Cid Consulting Unavailable ANNA, DR SOUSA Primary Care Unavailable SILVINA, DR FELICITAS Del Cid Admitting Unavailable ANNA, DR SOUSA Admitting Unavailable ANAN, DR SOUSA Attending Unavailable ANNA, DR SOUSA Attending Unavailable ANNA, DR SOUSA Consulting Unavailable ANNA, DR SOUSA Admitting Unavailable Anna, MD Shan Miller Primary Care Provider MD Eric Michael Attending Provider Eric Michael Attending Unavailable Eric Michael Admitting Unavailable Shan Castillo Primary Care Unavailable Shan Castillo MD Primary Care Provider Shan Castillo MD Unavailable RICHARD RIZO Attending UnavailSONG Almaguer Attending Unavailable SONG TOMAS Referring Unavailable SONG TOMAS Referring Unavailable SHAN CASTILOL Attending Unavailable SHAN CASTILLO Attending Unavailable RICHARD RIZO Attending UnavailRICHARD Rodriguez Attending UnavailBRIANNE Dunaway Attending Unavailable SONG TOMAS Attending Unavailable SHAN CASTILLO Attending Unavailable Medications Current Medications Medication Drug Class(es) Dates Sig (Normalized) Sig (Original) [id number] 200 actuat albuterol 0.09 mg/actuat metered dose inhaler (20 sources) beta2-Adrenergic Agonist Start: 01-21-2025 take 2 puff(s) by inhalation every four hours for wheezing albuterol HFA 90 mcg/act inhaler Indications: Asthma, unspecified asthma severity, unspecified whether complicated, unspecified whether persistent (HCC) Inhale 2 puffs every 4 (four) hours if needed for wheezing 18 g 3 01/21/2025 Active Start: 05-27-2024 take 2 puff(s) by mo uth every four hours as needed albuterol HFA 90 mcg/act inhaler Indications: Asthma, unspecified asthma severity, unspecified whether complicated, unspecified whether persistent (HCC) INHALE 2 PUFFS BY MOUTH EVERY 4 HOURS NEEDED 18 g 3 05/27/2024 Active Start: 04-27-2023 take 2 puff(s) by mo uth every four hours as needed albuterol HFA 90 mcg/act inhaler Indications: Asthma, unspecified asthma severity, unspecified whether complicated, unspecified whether persistent (CMS/HCC) INHALE 2 PUFFS BY MOUTH EVERY 4 HOURS NEEDED 8 g 6 04/27/2023 Active atorvastatin 20 mg oral tablet (20 sources) HMG-CoA Reductase Inhibitor Start: 01-20-2025 take 1 tablet by mouth once daily atorvastatin (Lipitor) 20 MG tablet Indications: Hypertriglyceridemia Take 1 tablet (20 mg) by mouth Daily 100 tablet 3 01/20/2025 Active Start: 10-17-2023 End: 01-20-2025 atorvastatin (Lipitor) 20 MG tablet Indications: Hypertriglyceridemia TAKE 1 TABLET DAILY 100 tablet 3 10/17/2023 01/20/2025 Discontinued (Reorder) empagliflozin 25 mg oral tablet (3 sources) Sodium-Glucose Cotransporter 2 Inhibitor Start: 09-14-2023 End: 03-26-2024 take 1 tablet by mouth once daily empagliflozin (Jardiance) 25 MG Indications: Type 2 diabetes mellitus with other specified complication, without long-term current use of insulin ([facility]) , Uncontrolled diabetes mellitus with hyperglycemia, without long-term current use of insulin ([facility]) Take 1 tablet (25 mg) by mouth Daily 100 tablet 3 09/14/2023 03/26/2024 Discontinued (Side effects) escitalopram 20 mg oral tablet (20 sources) Serotonin Reuptake Inhibitor Start: 01-21-2025 escitalopram (Lexapro) 20 MG tablet Indications: Depressive disorder TAKE 1 TABLET DAILY 90 tablet 3 01/21/2025 Active Start: 02-01-2024 escitalopram ( Lexapro) 20 MG tablet Indications: Depressive disorder TAKE 1 TABLET DAILY 90 tablet 3 02/01/2024 Active fluconazole 100 mg oral tablet (20 sources) Azole Antifungal Start: 01-20-2025 End: 01-30-2025 take 1 tablet by mouth once daily fluconazole (Diflucan) 100 MG tablet Indications: Intertrigo Take 1 tablet (100 mg) by mouth Daily for 10 days 10 tablet 01/20/2025 01/30/2025 Active Start: 02-23-2024 End: 07-02-2024 fluconazole (Diflucan) 150 M G tablet Indications: Yeast infection Take 1 tablet then three days later if still with symptoms take 1 tablet 2 tablet 02/23/2024 07/02/2024 Discontinued (Ineffective) Nsuszwjrflz-Lvtszhlcl-Bdnnky (Trelegy Ellipta) 200-62.5-25 MCG/ACT aerosol powder (20 sources) Start: 06-27-2024 take 1 puff(s) by inhalation once daily Szlbmeoqqgu-Guvdeclhu-Kksscv (Trelegy Ellipta) 200-62.5-25 MCG/ACT aerosol powder Indications: Moderate persistent asthma with acute exacerbation (HCC) Inhale 1 puff Daily 1 each 11 06/27/2024 Active Start: 06-27-2024 take 1 puff(s) by inhalation once daily Wgiqmiihygl-Ifcepjkig-Svteaq (Trelegy Ellipta) 200-62.5-25 MCG/ACT aerosol powder Indications: Moderate persistent asthma with acute exacerbation (CMS/HCC) Inhale 1 puff Daily 1 each 11 06/27/2024 Active hydroCHLOROthiazide 25 mg oral tablet (20 sources) Thiazide Diuretic Start: 12-25-2023 End: 03-05-2024 take 1 tablet by mouth once daily hydroCHLOROthiazide (HYDRODiuril) 25 MG tablet Indications: Benign essential hypertension Take 1 tablet (25 mg) by mouth Daily 90 tablet 3 03/05/2024 Active lactulose 667 mg/ml oral solution (15 sources) Osmotic Laxative Start: 08-06-2024 take 15 mL by mouth at bedtime lactulose (Chronulac) 10 GM/15ML solution Indications: Slow transit constipation TAKE 15ML BY MOUTH IN THE MORNING AND BEFORE BEDTIME 2700 mL 1 08/06/2024 Active Start: 07-15-2024 End: 08-14-2024 take 10 g by mouth at bedtime lactulose (Chronulac) 10 GM/15ML solution Indications: Slow transit constipation Take 15 mL (10 g) by mouth in the morning and 15 mL (10 g) before bedtime. 900 mL 07/15/2024 08/14/2024 Active lisinopril 40 mg oral tablet (20 sources) Angiotensin Converting Enzyme Inhibitor Start: 05-27-2024 lisinopril 40 MG tablet Indications: Primary hypertension TAKE 1 TABLET DAILY 100 tablet 3 05/27/2024 Active Start: 02-01-2024 take 1 tablet by durga once daily lisinopril 40 MG tablet Indications: Primary hypertension (CMS/HCC) Take 1 tablet (40 mg) by mouth Daily 90 tablet 02/01/2024 Active montelukast 10 mg oral tablet (20 sources) Leukotriene Receptor Antagonist Start: 06-27-2024 End: 06-27-2025 take 1 tablet by mouth at bedtime montelukast (Singulair) 10 MG tablet Indications: Moderate persistent asthma with acute exacerbation (HCC) Take 1 tablet (10 mg) by mouth at bedtime 90 tablet 3 06/27/2024 06/27/2025 Active ondansetron 4 mg oral tablet (5 sources) Serotonin-3 Receptor Antagonist Start: 07-22-2024 End: 08-07-2024 take 1 tablet by mouth every eight hours for nausea ondansetron (Zofran) 4 MG tablet Indications: Viral gastroenteritis Take 1 tablet (4 mg) by mouth every 8 (eight) hours if needed for nausea or vomiting for up to 10 days 30 tablet 07/22/2024 08/07/2024 Discontinued (Ineffective) phentermine hydrochloride 37.5 mg oral tablet (20 sources) Sympathomimetic Amine Anorectic Start: 03-10-2025 take 1 tablet by mouth once daily before mealtime phentermine (Adipex-P) 37.5 MG tablet Indications: Uncontrolled diabetes mellitus with hyperglycemia, without long-term current use of insulin (HCC) , Morbid obesity (CMS-HCC) TAKE 1 TABLET BY MOUTH ONCE EVERY MORNING BEFORE MEAL 30 tablet 03/10/2025 Active Start: 09-10-2024 End: 03-10-2025 take 1 tablet by mouth once daily before mealtime phentermine (Adipex-P) 37.5 MG tablet Indications: Uncontrolled diabetes mellitus with hyperglycemia, without long-term current use of insulin ([facility]) , Morbid obesity (CMS-HCC) TAKE 1 TABLET BY MOUTH ONCE EVERY MORNING BEFORE MEAL 30 tablet 02/06/2025 03/10/2025 Discontinued Start: 02-01-2024 End: 08-05-2024 take 1 tablet by mouth once daily before mealtime phentermine (Adipex-P) 37.5 MG tablet Indications: Uncontrolled diabetes mellitus with hyperglycemia, without long-term current use of insulin (CMS/HCC) , Morbid obesity (CMS/HCC) TAKE 1 TABLET BY MOUTH ONCE EVERY MORNING BEFORE MEALS 30 tablet 08/05/2024 Active semaglutide 14 mg oral table t (20 sources) Start: 01-21-2025 Rybelsus 14 MG tablet Indications: Type 2 diabetes mellitus with other specified complication, without long-term current use of insulin (HCC) TAKE 1 TABLET IN THE MORNING BEFORE A MEAL 90 tablet 3 01/21/2025 Active Start: 02-27-2024 take 1 tablet by durga th before mealtime semaglutide (Rybelsus) 14 MG tablet Indications: Type 2 diabetes mellitus with other specified complication, without long-term current use of insulin ([facility]) Take 1 tablet (14 mg) by mouth in the morning. Take before meals. 90 tablet 3 02/27/2024 Active Completed/Discontinued Medications Medication Drug Class(es) Dates Sig (Normalized) Sig (Original) levonorgestrel 0.065578 mg/hr intrauterine system (2 sources) Progestin, Progestin-containi ng Intrauterine Device Start: 08-07-2024 End: 08-07-2024 Levonorgestrel intrauterine device 52 mg Start: 08-07-2024 End: 08-07-2024 52 mg, Once PRN Procedure, S tarting on Mon08/07/24 at 1015, For 1 dose Problems Active Problems Problem Classification Problem Date Documented Date Episodic/Chronic Anxiety disorders (20 sources) Anxiety disorder, unspecified; Translations: [Anxiety] Onset: 10-23-2018 02-07-2023 Chronic Asthma (20 sources) Asthma; Translations: [Unspecified asthma, uncomplicated] Onset: 12-24-2010 02-07-2023 Chronic Contraceptive and procreative management (3 sources) Intrauterine contraceptive device in situ; Translations: [Encounter for routine checking of intrauterine contraceptive device] 07-01-2024 Episodic Diabetes mellitus with complications (20 sources) Hyperglycemia due to diabetes mellitus; Translations: [Type 2 diabetes mellitus with hyperglycemia] Onset: 01-28-2021 05-23-2023 Chronic Disorders of lipid metabolism (20 sources) Hypertriglyceridemia ; Translations: [Pure hyperglyceridemia] Onset: 07-13-2015 02-07-2023 Chronic Essential hypertension (20 sources) Essential (primary) hypertension; Translations: [Benign essential hypertension] Onset: 01-22-2021 03-26-2024 Chronic Inflammatory diseases of female pelvic organs (2 sources) Infective vaginitis ; Translations: [Acute vaginitis] 07-02-2024 Episodic Intestinal infection (1 source) Viral gastroenteritis; Translations: [Viral intestinal infection, unspecified] 07-22-2024 Episodic Mood disorders (20 sources) Depressive disorder; Translations: [Depressive disorder] Onset: 01-24-2011 02-07-2023 Chronic Neoplasms of unspecified nature or uncertain behavior (1 source) Neoplasm of unspecified behavior of bone, soft tissue, and skin; Translations: [Neoplasm of unspecified behavior of bone, soft tissue, and skin] Onset: 02-15-2023 Episodic Nonspecific chest pain (4 sources) Chest pain, unspecified; Translations: [CHEST PAIN UNSPECIFIED] Onset: 01-19-2021 Episodic Other aftercare (1 source) Other mcfp (current) drug therapy; Translations: [OTH CARE HOME CURRENT DRUG THERAPY] Onset: 01-22-2021 Episodic Other congenital anomalies (2 sources) Porokeratosis; Translations: [Other specified congenital malformations of skin] 06-13-2024 Chronic Other connective tissue disease (2 sources) Pain in left foot; Translations: [Pain in left foot] 06-13-2024 Episodic Other fractures (6 sources) Disorder of bone; Translations: [Stress fracture, unspecified site, initial encounter for fracture] 06-13-2024 Episodic Other inflammatory condition of skin (2 sources) Intertrigo; Translations: [Erythema intertrigo] 01-20-2025 Episodic Other non-traumatic joint disorders (1 source) Pain in right shoulder; Translations: [PAIN IN RIGHT SHOULDER] Onset: 01-22-2021 Episodic Other nutritional; endocrine; and metabolic disorders (20 sources) Metabolic syndrome X; Translations: [Metabolic syndrome] Onset: 06-02-2015 03-26-2024 Chronic Other nutritional; endocrine; and metabolic disorders (20 sources) Lipoprotein deficiency disorder; Translations: [Lipoprotein deficiency] Onset: 07-13-2015 02-07-2023 Chronic Other nutritional; endocrine; and metabolic disorders (20 sources) Cholesterol level - finding; Translations: [Lipoprotein deficiency] Onset: 02-07-2023 02-07-2023 Chronic Other nutritional; endocrine; and metabolic disorders (20 sources) Morbid obesity; Translations: [Morbid (severe) obesity due to excess calories] Onset: 01-28-2021 02-07-2023 Chronic Other screening for suspected conditions (not mental disorders or infectious disease) (2 sources) Breast neoplasm screening status; Translations: [Encounter for screening mammogram for malignant neoplasm of breast] 07-01-2024 Episodic Other upper respiratory disease (2 sources) Chronic rhinitis; Translations: [Chronic rhinitis] 06-27-2024 Chronic Substance-related disorders (20 sources) Nicotine dependence, cigarettes, uncomplicated; Translations: [Smoker] Onset: 08-31-2016 02-07-2023 Chronic Unclassified (2 sources) Hyperglycemia due to diabetes mellitus 08-05-2024 Past or Other Problems Problem Classification Problem Date Documented Da te Episodic/Chronic Conditions associated with dizziness or vertigo (20 sources) Dizziness; Translations: [Dizziness and giddiness] Onset: 03-26-2024 03-26-2024 Episodic Immunizations and screening for infectious disease (4 sources) Contact with and (suspected) exposure to other viral communicable diseases; Translations: [CONTCT EXPS OTH VIRL COMMUNICABL DZ] Onset: 05-14-2020 Episodic Other gastrointestinal disorders (17 sources) Slow transit constipation; Translations: [Slow transit constipation] Onset: 07-15-2024 07-15-2024 Episodic Other nervous system disorders (1 source) Parageusia; Translations: [PARAGEUSIA] Onset: 05-19-2020 Episodic Other upper respiratory infections (20 sources) Upper respiratory infection; Translations: [Acute upper respiratory infection, unspecified] Onset: 08-22-2023 08-22-2023 Episodic Results Test Name Value Interpretation Reference Range Facility Laboratory - Hematology and Cell countson 01-20-2025 HbA1c (Bld) [Mass fraction] 5.2 % [facility] No Panel Informationon 01-20 Interpretation and review of laboratory results Normal [facility] BI MAMMOGRAM SCREENING TOMOS YNTHESIS BILATERALon 08-12-2024 BI MAMMOGRAM SCREENING TOMOSYNTHESIS BILATERAL This is a summary report. The complete report is available in the patient's medical record. If you cannot access the medical record, please contact the sending organization for a detailed fax or copy. Examination: BI MAMMOGRAM SCREENING TOMOSYNTHESIS BILATERAL Clinical History: screen Technique: Screening digital mammography study of both breasts was performed with 2-D and 3-D tomosynthesis imaging. Study was compared to the prior exam dated 07/19/2023. Findings: There is no evidence of interval dominant spiculated mass, grouped microcalcifications, or skin thickening which would be suggestive of malignancy. Mild scattered benign-appearing calcifications noted bilaterally. Intramammary lymph nodes bilaterally which appear grossly unremarkable. IMPRESSION: Impression: No specific evidence of malignancy seen in either breast. BIRADS 2 - Benign Findings DENSITY: There are scattered areas of fibroglandular density. FOLLOW-UP: Routine Screening Mammogram ELECTRONICALLY SIGNED BY: Navjot Babin M.D. Normal Not Available Comment on above: Order Comment: U/S a nd spot compression if indicated HCG ( test) Ql (U)o n 08-07-2024 Preg Test, Ur Negative Negative [facility] IUD Insertionon 08-07-2024 Song Tomas MD 08/07/2024 10:49 AM IUD Insertion Performed by: Song Tomas MD Authorized by: Snog Tomas MD Procedure: IUD removal and insertion Other reason for removal: Strings visualized: yes Cervix cleaned with: iodopovidone Tenaculum applied to cervix: yes Cervix manually dilated: no IUD grasped by forceps: yes IUD removed: yes Date/Time of Removal: 08/07/2024 10:47 AM Removed without complications: yes IUD intact: yes risk: reasonably certain the patient is not Date/Time of Insertion: 08/07/2024 10:47 AM Speculum placed in vagina: yes Cervix cleaned and prepped: yes Tenaculum/Allis/Ring Forceps applied to cervix: yes Anesthesia used: no Uterus sound depth (cm): 8 IUD inserted without complications: yes OSM: 52 mg Levonorgestrel 20.1 MCG/DAY Strings trimmed to (cm): 3 Patient tolerated procedure well: yes Intended removal date: 8 years [employer] e IUD Removalon 08-07-2024 Song Tomas MD 08/07/2024 10:49 AM IUD Removal Date/Time: 08/07/2024 10:46 AM Performed by: Song Tomas MD Authorized by: Song Tomas MD Consent: Consent obtained: Verbal Consent given by: Patient Procedure risks and benefits discussed: yes Patient questions answered: yes Patient agrees, verbalizes understanding, and wants to proceed: yes Procedure: Removed with no complications: yes Other reason for removal: [employer] e XR Foot - left 3 [facility] Imaging Result: Radiographs: 3 views left foot were taken and reviewed. Radiographic impression: In comparison to prior film, there is now near complete trabeculation across fracture of 5th metatarsal styloid process. There is not acute angulation or displacement noted. No acute osseous changes. No osteolytic or osteoblastic lesions appreciated. No soft tissue gas. No discernible mass noted. Joint spaces are well maintained. Bone density appear typical for age of patient. [employer] [facility] Radiology Study observation (narrative) [employer] ALBUMIN, RANDOM URINE W/CREA TININEon 07-16-2024 ALBUMIN, URINE 1.3 mg/dL Normal See Note: [facility] Comment on above: Order Comment: FASTI NG:UNKNOWN FASTING: UNKNOWN Result Comment: Refe rence Range: Reference Range Not established Performed By: #### [id number] #### [facility] [address], [address] [place] [id number] [employer] Employee: Boby Robins MD ALBUMIN/CREATININE RATIO, RANDOM URINE 12 mg/g creat Normal <30 [facility] Comment on above: Order Comment: FASTI NG:UNKNOWN FASTING: UNKNOWN Result Comment: The ADA defines abnormalities in albumin excretion as follows: Albuminuria Category Result (mg/g creatinine) Normal to Mildly increased <30 Moderately increased 30-299 Severely increased > OR = 300 The ADA recommends that at least two of three specimens collected within a 3-6 month period be abnormal before considering a patient to be within a diagnostic category. Performed By: #### 6 517 #### [facility] [address], [address] [place] [address] [employer] Employee: Boby Robins MD Creatinine (U) [Mass/Vol] 113 mg/dL Normal 20-275 [facility] Comment on above: Order Comment: FASTI NG:UNKNOWN FASTING: UNKNOWN Performed By: #### 6 517 #### [facility] [address], [address] [place] [address] [employer] Employee: Boby Robins MD Laboratory - Hematology and Cell countson 07-15-2024 HbA1c (Bld) [Mass fraction] 5.1 % [employer] No Panel Informationon 07-15 Interpretation and review of laboratory results Normal [facility] [employer] XR Foot - left 3 [facility] Imaging Result: Radiographs: 3 views left foot were taken and reviewed. Radiographic impression: In comparison to prior film, there is now obvious non displaced fracture of 5th metatarsal styloid process. No acute osseous changes. No osteolytic or osteoblastic lesions appreciated. No soft tissue gas. No discernible mass noted. Joint spaces are well maintained. Bone density appear typical for age of patient. [employer] Study observation (narrative) [employer] XR Foot - left 3 [facility] Imaging Result: Radiographs: 3 views left foot were taken and reviewed. Radiographic impression: Cortical reaction noted to lateral base of 5th metatarsal without over fracture line. No osteolytic or osteoblastic lesions appreciated. No soft tissue gas. No discernible mass noted. Joint spaces are well maintained. Bone density appear typical for age of patient. [employer] [facility] Study observation (narrative) [employer] Sav 02-15-2023 L --- Specimen: [id number] Received: 02/16/23 Status: ROSA Marcial Num: [id number] Spec Type: Surgical Subm Dr: Eric Michael MD Tissues: A Skin-Other than Cyst, tag, debridement or plastic repair (LT LOWER LEG) Procedures: MART 1/PELON A/2, HE/5, Gross/Micro L4, CD10/2, CD68/2, HMB45/2 Age/ Patient Sex Location Account Attending Physician Millicent Arreola 42/F [place] [id number] Eric Michael MD SPEC NUM: [id number] RECD: 02/16/23 STATUS: ROSA MARCIAL NUM: [id number] JEROD: 02/15/[address]: Eric Michael MD ENTERED: 02/16/[address]: SPEC TYPE: Surgical DEPT: S ORDERED: [...] of and left lower leg are two holman-aems skin fragments measuring 1.3 x 1.1 x 0.2 cm (inked black) and 1.4 x 1.0 x 0.1 cm (inked blue). The second tissue contains a 0.5 x 0.5 cm area of depression. The tissues are sectioned. Entirely submitted in two cassettes labeled A1-A2. Specimen: [id number] Received: 02/16/23 Status: ROSA Hugginscarter Num: [id number] Spec Type: Surgical Subm Dr: Eric Michael MD Tissues: A Skin-Other than Cyst, tag, debridement or plastic repair (LT LOWER LEG) Procedures: MART 1/PELON A/2, HE/5, Gross/Micro L4, CD10/2, CD68/2, HMB45/2 Patient: Millicent Arreola [id number] (Continued) Specimen: [id number] Received: 02/16/23 (Continued) Signed (signature on file) Jae Felipe MD 02/23/23 1725 Specimen: [id number] Received: 02/16/23 Status: ROSA Marcial Num: [id number] Spec Type: Surgical Subm Dr: Eric Michael MD Tissues: A Skin-Other than Cyst, tag, debridement or plastic repair (LT LOWER LEG) Procedures: MART 1/PELON A/2, HE/5, Gross/Micro L4, CD10/2, CD68/2, HMB45/2 Patient: Millicent Arreola [id number] (Continued) Specimen: [id number] Received: 02/16/23 (Continued) Microscopic Description Two H E slides reviewed. The microscopic examination confirms the diagnosis. CPT Codes 11264 Specimen: [id number] Received: 02/16/23 Status: ROSA Aniket Num: [id number] Spec Type: Surgical Subm Dr: Eric Michael MD Tissues: A Skin-Other than Cyst, tag, debridement or plastic repair (LT LOWER LEG) Procedures: MART 1/PELON A/2, HE/5, Gross/Micro L4, CD10/2, CD68/2, HMB45/2 Patient: Millicent Arreola Paul [id number] (Continued) Signed (signature on file) Jae Felipe MD 02/23/23 1725 Normal [facility] Hemoglobin A1Con 06-02-2021 EAG 142.72 Normal [facility] Comment on above: Performed By: #### A 1C #### [facility] [address] [place], [place] [id number] HbA1c (Bld) [Mass fraction] 6.6 % High 4.0-6.0 [facility] Comment on above: Performed By: #### A 1C #### [facility] [address] [place], [place] [id number] CARDIAC FELICITAS ADMITon 021 CK [Catalytic activity/Vol] 85 U/L Normal 30-135 [facility] Comment on above: Performed By: #### C LANCE, CMADM #### [facility] [address] [place] [id number] [place] Olga CK.MB [Mass/Vol] 0.58 ng/mL Normal <=2.37 [facility] Comment on above: Performed By: #### C LANCE, CMADM #### [facility] [address] [place] [address] [place] Olga HSTROP <4.0 Normal 4.0-35.5 [facility] Comment on above: Result Comment: CUT- OFF POINTS HAVE BEEN ESTABLISHED BASED ON THE FOURTH UNIVERSAL DEFINITIONS OF MYOCARDIAL INFARCTION. THE UPPER REFERENCE LIMIT (URL) OF TROPONIN, DEFINED THE 99TH PERCENTILE OF cTnI DISTRIBUTION IN A REFERENCE POPULATION, HAS BEEN CONFIRMED THE DECISION THRESHOLD FOR [place] DIAGNOSIS. Performed By: #### C LANCE, CMADM #### [facility] [address] [place], [place] [address] Heaven Olga ALICIA 21.0 ng/mL Normal <=61.5 [facility] Comment on above: Performed By: #### C LANCE, CMADM #### [facility] [address] [place], [place] [address] Heaven Olga CBC AUTO DIFFon 01-20-2021 BASO # 0.1 103/ul Normal 0.0-0.1 [facility] Comment on above: Performed By: #### C BC #### [facility] [address] [place], [place] [address] Heaven Olga Basophils/100 WBC (Bld) 0.4 % Normal 0.2-2.0 The [facility] [facility] Comment on above: Performed By: #### C BC #### [facility] [address], [place] [address] Heaven Olga EO # 0.2 103/ul Normal 0.0-0.7 [facility] Comment on above: Performed By: #### C BC #### [facility] [address] [place], [place] [phone] Heaven Olga Eosinophils/100 WBC (Bld) 1.6 % Normal 0.9-7.0 [facility] Comment on above: Performed By: #### C BC #### [facility] [address] [place], [place] [phone] Heaven Olga Erythrocyte distribution width (RBC) [Ratio] 13.2 % Normal 11.0-15.0 [facility] Comment on above: Performed By: #### C BC #### [facility] [address] [place], [place] [phone] Heaven Olga Hematocrit (Bld) [Volume fraction] 42.6 % Normal 36.0-48.0 [facility] Comment on above: Performed By: #### C BC #### [facility] [address] [place], [place] [phone] [place] Olga Hemoglobin (Bld) [Mass/Vol] 14.1 g/dL Normal 12.0-16.0 [facility] Comment on above: Performed By: #### C BC #### [facility] [address] [place], [place] [phone] Heaven Olga IG # 0.04 10e3/ul Critically high 0.00-0.03 The [facility] Comment on above: Performed By: #### C BC #### [facility] [address] [place], [place] [phone] Heaven Olga IG % 0.4 % Normal 0.0-0.5 [facility] Comment on above: Performed By: #### C BC #### [facility] [address] [place], [place] [phone] [place] Olga LYMPH # 4.4 103/ul Critically high 1.2-3.8 The [facility] Comment on above: Performed By: #### C BC #### [facility] [address] [place], [place] [phone] Heaven Olga Lymphocytes/100 WBC (Bld) 39.5 % Normal 20.5-60.0 [facility] Comment on above: Performed By: #### C BC #### [facility] [address] [place], [place] [phone] Heavenchela Espinoza MANUAL DIFF REQ NO Normal The [facility] Comment on above: Performed By: #### C BC #### [facility] [address] [place], [place] [phone] Heaven Olga MCH (RBC) [Entitic mass] 29.4 pg Normal 26.7-34.0 [facility] Comment on above: Performed By: #### C BC #### [facility] [address] [place], [place] [phone] Heavenchela Espinoza MCHC (RBC) [Mass/Vol] 33.1 g/dL Normal 29.9-35.2 [facility] Comment on above: Performed By: #### C BC #### [facility] [address] [place], [place] [phone] Heaven Olga MCV (RBC) [Entitic vol] 88.8 fL Normal 81.0-99.0 [facility] Comment on above: Performed By: #### C BC #### [facility] [address] [place], [place] [phone] Heaven Olga MONO # 0.6 103/ul Normal 0.3-0.8 [facility] Comment on above: Performed By: #### C BC #### [facility] [address] [place], [place] [phone] Heaven Olga Monocytes/100 WBC (Bld) 5.4 % Normal 1.7-12.0 [facility] Comment on above: Performed By: #### C BC #### [facility] [address] [place], [place] [phone] Heaven Espinoza NEUT # 5.9 103/ul Normal 1.4-6.5 [facility] Comment on above: Performed By: #### C BC #### [facility] [address] [place], [place] [phone] Heaven Espinoza Neutrophils/100 WBC (Bld) 52.7 % Normal 43.0-75.0 [facility] Comment on above: Performed By: #### C BC #### [facility] [address] [place], [place] [phone] Heaven Espinoza Platelet mean volume (Bld) [Entitic vol] 9.5 fL Normal 9.5-13.5 [facility] Comment on above: Performed By: #### C BC #### [facility] [address] [place] [address] Heaven Espinoza PLT 211 103/ul Normal 150-450 [facility] Comment on above: Performed By: #### C BC #### [facility] [address] [place], [place] [phone] Heavenchela Espinoza RBC 4.80 106/ul Normal 4.20-5.40 [facility] Comment on above: Performed By: #### C BC #### [facility] [address] [place], [place] [phone] Heaven Espinoza WBC 11.2 103/ul Critically high 4.0-11.0 [facility] Comment on above: Performed By: #### C BC #### [facility] [address] [place], [place] [phone] Heaven Olga PROF 14(COMP METB)on 021 Albumin [Mass/Vol] 3.8 g/dL Normal 3.5-5.0 [facility] Comment on above: Performed By: #### C MP, CMADM #### [facility] [address] [place], [place] [phone] Heaven Espinoza Albumin/Globulin [Mass ratio] 1.0 {ratio} Normal [facility] Comment on above: Performed By: #### C MP, CMADM #### [facility] [address] [place], [place] [address] Heaven Olga ALP [Catalytic activity/Vol] 74 U/L Normal 38-126 [facility] Comment on above: Performed By: #### C MP, CMADM #### [facility] [address] [place], [place] [address] Heaven Olga ALT [Catalytic activity/Vol] 29 U/L Normal 9-52 [facility] Comment on above: Performed By: #### C MP, CMADM #### [facility] [address] [place] [phone] Heaven Olga Anion gap [Moles/Vol] 15.7 mmol/L Normal [facility] Comment on above: Performed By: #### C LANCE, CMADM #### [facility] [address] [place] [phone] Heaven Olga AST [Catalytic activity/Vol] 11 U/L Critically low 14-36 [facility] Comment on above: Performed By: #### C LANCE, CMADM #### [facility] [address] [place] [id number] [place] Olga Bilirubin [Mass/Vol] 0.3 mg/dL Normal 0.2-1.3 [facility] Comment on above: Performed By: #### C MP, CMADM #### [facility] [address] [place] [phone] Heaven Olga Calcium [Mass/Vol] 9.2 mg/dL Normal 8.4-10.2 [facility] Comment on above: Performed By: #### C MP, CMADM #### [facility] [address] [place], [place] [address] Heaven Olga Chloride [Moles/Vol] 104 mmol/L Normal 98-107 [facility] Comment on above: Performed By: #### C MP, CMADM #### [facility] [address] [place], [place] [address] Heaven Olga CO2 [Moles/Vol] 24.2 mmol/L Normal 22.0-30.0 [facility] Comment on above: Performed By: #### C MP, CMADM #### [facility] [address] [place] [address] Heaven Olga Creatinine [Mass/Vol] 0.73 mg/dL Normal 0.52-1.04 [facility] Comment on above: Performed By: #### C MP, CMADM #### [facility] [address] [place] [id number] [place] Olga EGFR-AF FILIPINO >60 Normal >=60 [facility] Comment on above: Performed By: #### C MP, CMADM #### [facility] [address] [place] [address] Heaven Olga EGFR-NON AF FILIPINO >60 Normal >=60 [facility] Comment on above: Performed By: #### C LANCE, CMADM #### [facility] [address] [place] [address] Heaven Olga Globulin (S) [Mass/Vol] 3.8 g/dL Normal [facility] Comment on above: Performed By: #### C MP, CMADM #### [facility] [address] [place] [address] Heaven Olga Glucose [Mass/Vol] 143 mg/dL Critically high 74-106 [facility] Comment on above: Performed By: #### C MP, CMADM #### [facility] [address] [place] [address] Heaven Olga Potassium [Moles/Vol] 3.9 mmol/L Normal 3.4-5.0 [facility] Comment on above: Performed By: #### C MP, CMADM #### [facility] [address] [place] [address] Heaven Olga Protein [Mass/Vol] 7.6 g/dL Normal 6.1-8.2 [facility] Comment on above: Performed By: #### C MP, CMADM #### [facility] [address] [place] [address] Heaven Olga Sodium [Moles/Vol] 140 mmol/L Normal 137-145 [facility] Comment on above: Performed By: #### C LANCE, CMADM #### [facility] [address] [place], [place] [address] Heaven Espinoza Urea nitrogen [Mass/Vol] 15.0 mg/dL Normal 7.0-17.0 [facility] Comment on above: Performed By: #### C LANCE, CMADM #### [facility] [address] [place], [place] [address] Heaven Espinoza Urea nitrogen/Creatinin e [Mass ratio] 20.5 mg/mg Normal [facility] Comment on above: Performed By: #### C LANCE, CMADM #### [facility] [address] [place] [phone] Heaven Espinoza COVID-19 PCRon 05-16-2020 SARS-CoV-2 (COVID-19) RNA GRABIEL+probe Ql (Unsp spec) Not detected Normal Not Detected [facility] Comment on above: Result Comment: This nucleic acid amplification test was developed and its performance characteristics determined by [employer]. Nucleic acid amplification tests include PCR and [...] assay. Performed By: #### C VDPCR #### [facility] [address] [place], [place] [address] Heaven Espinoza Vital Signs Date Time Vital Sign Value Performing Clinician Melinda boles 01-20-2025 08:36-0400 Body height 157.5 cm Shan Castillo MD Work Phone: [facility] 01-20-2025 08:36-0400 Body mass index (BMI) [Ratio] 44.81 kg/m2 Shan Castillo MD Work Phone: [facility] 01-20-2025 08:36-0400 Body weight 111.13 kg Shan Castillo MD Work Phone: [facility] 01-20-2025 08:36-0400 Diastolic blood pressure 82 mm[Hg] Shan Castillo MD Work Phone: [facility] 01-20-2025 08:36-0400 Heart rate 101 /min Shan Castillo MD Work Phone: [facility] 01-20-2025 08:36-0400 SaO2% (BldA) [Mass fraction] 97 % Shan Castillo MD Work Phone: [facility] 01-20-2025 08:36-0400 Systolic blood pressure 114 mm[Hg] Shan Castillo MD Work Phone: [facility] 08-07-2024 10:33-0500 Body mass index (BMI) [Ratio] 42.25 kg/m2 Song Tomas MD Work Phone: [facility] 08-07-2024 10:33-0500 Body weight 104.78 kg Song Tomas MD Work Phone: [facility] 08-07-2024 10:33-0500 Diastolic blood pressure 80 mm[Hg] Song Tomas MD Work Phone: [facility] 08-07-2024 10:33-0500 Systolic blood pressure 132 mm[Hg] Song Tomas MD Work Phone: [facility] 07-15-2024 08:08-0500 Body height 157.5 cm Shan Castillo MD Work Phone: [facility] 07-15-2024 08:08-0500 Body mass index (BMI) [Ratio] 44.99 kg/m2 Shan Castillo MD Work Phone: [facility] 07-15-2024 08:08-0500 Body weight 111.58 kg Shan Castillo MD Work Phone: [facility] 07-15-2024 08:08-0500 Diastolic blood pressure 88 mm[Hg] Shan Castillo MD Work Phone: [facility] 07-15-2024 08:08-0500 Heart rate 95 /min Shan Castillo MD Work Phone: [facility] 07-15-2024 08:08-0500 SaO2% (BldA) [Mass fraction] 97 % Shan Castillo MD Work Phone: [facility] 07-15-2024 08:08-0500 Systolic blood pressure 122 mm[Hg] Shan Castillo MD Work Phone: [facility] 07-02-2024 10:17-0500 Body mass index (BMI) [Ratio] 41.88 kg/m2 Song Tomas MD Work Phone: [facility] 07-02-2024 10:17-0500 Body weight 103.87 kg Song Tomas MD Work Phone: [facility] 07-02-2024 10:17-0500 Diastolic blood pressure 82 mm[Hg] Song Tomas MD Work Phone: [facility] 07-02-2024 10:17-0500 Systolic blood pressure 122 mm[Hg] Song Tomas MD Work Phone: [facility] 06-27-2024 14:35-0500 Body height 157.5 cm Brianne Moore MD Work Phone: [facility] 06-27-2024 14:35-0500 Body mass index (BMI) [Ratio] 43.71 kg/m2 Brianne Moore MD Work Phone: [facility] 06-27-2024 14:35-0500 Body weight 108.41 kg Brianne Moore MD Work Phone: [facility] 03-26-2024 09:00-0400 Body height 157.5 cm Shan Castillo MD Work Phone: [facility] 03-26-2024 09:00-0400 Body mass index (BMI) [Ratio] 42.62 kg/m2 Shan Castillo MD Work Phone: [facility] 03-26-2024 09:00-0400 Body weight 105.69 kg Shan Castillo MD Work Phone: [facility] 03-26-2024 09:00-0400 Diastolic blood pressure 88 mm[Hg] Shan Castillo MD Work Phone: [facility] 03-26-2024 09:00-0400 Heart rate 121 /min Shan Castillo MD Work Phone: [facility] 03-26-2024 09:00-0400 SaO2% (BldA) [Mass fraction] 97 % Shan Castillo MD Work Phone: [facility] 03-26-2024 09:00-0400 Systolic blood pressure 124 mm[Hg] Shan Castillo MD Work Phone: [facility] Healthcare Encounters Encounter Date Encounter Type Care Provider Facility Start: 03-10-2025 End: 03-10-2025 Refill [facility] Comment on above: Uncontrolled diabete s mellitus with hyperglycemia, without long-term current use of insulin (HCC); Morbid obesity ([facility]) Start: 02-06-2025 End: 02-06-2025 Refill Olga REESE [facility] Comment on above: Uncontrolled diabete s mellitus with hyperglycemia, without long-term current use of insulin (HCC); Morbid obesity ([facility]) Start: 01-20-2025 End: 01-20-2025 Office outpatient visit 25 minutes Shan Castillo MD [facility] Comment on above: Intertrigo (Primary Dx); Hypertriglyceridemia ; Uncontrolled diabetes mellitus with hyperglycemia, without long-term current use of insulin (HCC); Type 2 diabetes mellitus with diabetic nephropathy, without long-term current use of insulin (HCC); Morbid obesity (CMS-HCC) Start: 01-20-2025 End: 01-20-2025 ambulatory SHAN CASTILLO Not Available Start: 12-06-2024 End: 12-06-2024 Refill Shan Castillo MD Work Phone: [facility] Comment on above: Uncontrolled diabete s mellitus with hyperglycemia, without long-term current use of insulin (HCC); Morbid obesity (CMS-HCC) Start: 11-05-2024 End: 11-05-2024 Refill Shan Castillo MD Work Phone: [facility] Comment on above: Uncontrolled diabete s mellitus with hyperglycemia, without long-term current use of insulin (CMS/HCC); Morbid obesity (CMS/HCC) Start: 10-07-2024 End: 10-07-2024 Refill Shan Castillo MD Work Phone: [facility] Comment on above: Uncontrolled diabete s mellitus with hyperglycemia, without long-term current use of insulin (CMS/HCC); Morbid obesity (CMS/HCC) Start: 08-12-2024 End: 08-12-2024 ambulatory SONG TOMAS Not Available Start: 08-07-2024 End: 08-07-2024 ambulatory SONG TOMAS Not Available Start: 08-07-2024 End: 08-07-2024 Patient encounter procedure Song Tomas MD Work Phone: [facility] Comment on above: Encounter for IUD re moval and reinsertion Start: 08-04-2024 End: 08-05-2024 Refill Olga REESE Work Phone: [facility] Comment on above: Uncontrolled diabete s mellitus with hyperglycemia, without long-term current use of insulin (CMS/HCC); Morbid obesity (CMS/HCC) Start: 07-25-2024 End: 07-25-2024 Bamboo flowsheet Richard Rizo DPM Work Phone: [facility] Start: 07-25-2024 End: 07-25-2024 Bamboo flowsheet Richard Rizo DPM Work Phone: [facility] Start: 07-25-2024 End: 07-25-2024 ambulatory RICHARD RIZO Not Available Start: 07-25-2024 End: 07-25-2024 Office outpatient visit 15 minutes Richard Rizo DPM Work Phone: [facility] Comment on above: Stress reaction of b one (Primary Dx) Start: 07-22-2024 End: 07-22-2024 Telephone encounter Shan Castillo MD Work Phone: [facility] Start: 07-15-2024 End: 07-15-2024 Office outpatient visit 25 minutes Shan Castillo MD Work Phone: [facility] Comment on above: Benign essential hyp ertension (CMS/HCC) (Primary Dx); Uncontrolled diabetes mellitus with hyperglycemia, without long-term current use of insulin (CMS/HCC); Severe persistent asthma, uncomplicated (CMS/HCC); 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); Type 2 diabetes mellitus with other specified complication (CMS/HCC); Hyperlipidemia, unspecified (CMS/HCC); Slow transit constipation; Morbid obesity (CMS/HCC) Start: 07-15-2024 End: 07-15-2024 ambulatory SHAN CASTILLO Not Available Start: 07-02-2024 End: 07-02-2024 Bamboo flowsheet Song Tomas MD Work Phone: [facility] Start: 07-02-2024 End: 07-02-2024 Bamboo flowsheet Song Toams MD Work Phone: [facility] Start: 07-02-2024 End: 07-02-2024 Patient encounter procedure Song Tomas MD Work Phone: [facility] Healthcare Work Phone: Start: 07-02-2024 End: 07-02-2024 Periodic preventive med est patient 40-64yrs Song Tomas MD Work Phone: [facility] Comment on above: Well woman exam with routine gynecological exam (Primary Dx); Other screening mammogram; Intrauterine device surveillance; Vaginal infection Start: 07-02-2024 End: 07-02-2024 ambulatory SONG TOMAS Not Available Start: 07-01-2024 End: 07-01-2024 Refjennifer REESE Work Phone: [facility] Comment on above: Uncontrolled diabete s mellitus with hyperglycemia, without long-term current use of insulin ([facility]); Morbid obesity ([facility]) Start: 06-27-2024 End: 06-27-2024 Office outpatient new 45 minutes Brianne Moore MD Work Phone: [facility] Comment on above: Moderate persistent asthma with acute exacerbation ([facility]) (Primary Dx); Chronic rhinitis Start: 06-27-2024 End: 06-27-2024 ambulatory BRIANNE MOORE Not Available Start: 06-27-2024 End: 06-27-2024 Bamboo flowsheet Richard Rizo DPM Work Phone: [facility] Start: 06-27-2024 End: 06-27-2024 Bamboo flowsheet Richard Rizo DPM Work Phone: [facility] Start: 06-27-2024 End: 06-27-2024 Office outpatient visit 15 minutes Richard Rizo DPM Work Phone: [facility] Comment on above: Stress reaction of b one (Primary Dx) Start: 06-27-2024 End: 06-27-2024 ambulatory RICHARD RIZO Not Available Start: 06-13-2024 End: 06-13-2024 Bamboo flowsheet Richard Rizo DPM Work Phone: [facility] Start: 06-13-2024 End: 06-13-2024 Bamboo flowsheet Richard Rizo DPM Work Phone: [facility] Start: 06-13-2024 End: 06-13-2024 ambulatory RICHARD RIZO Not Available Start: 06-13-2024 End: 06-13-2024 Office outpatient new 30 minutes Richard Rizo DPM Work Phone: [facility] Comment on above: Left foot pain (Prim sanjay Dx); Stress reaction of bone; Porokeratosis Start: 05-30-2024 End: 05-30-2024 Refill Olga REESE Work Phone: [facility] Comment on above: Uncontrolled diabete s mellitus with hyperglycemia, without long-term current use of insulin (CMS/HCC); Morbid obesity (CMS/HCC) Start: 05-01-2024 End: 05-02-2024 Refill Kassie Gomez LPN [facility] Comment on above: Uncontrolled diabete s mellitus with hyperglycemia, without long-term current use of insulin (CMS/HCC); Morbid obesity (CMS/HCC) Start: 04-01-2024 End: 04-01-2024 Refill Suki Vance MA [facility] Comment on above: Uncontrolled diabete s mellitus with hyperglycemia, without long-term current use of insulin (CMS/HCC); Morbid obesity (CMS/HCC) Start: 03-26-2024 End: 03-26-2024 Office outpatient visit 25 minutes Shan Castillo MD Work Phone: [facility] Comment on above: Dizziness (Primary D x); Benign essential hypertension (CMS/HCC); Metabolic syndrome Start: 03-26-2024 End: 03-26-2024 ambulatory SHAN CASTILLO Not Available Start: 03-05-2024 End: 03-05-2024 Refill Kassie Gomez LPN [facility] Comment on above: Uncontrolled diabete s mellitus with hyperglycemia, without long-term current use of insulin (CMS/HCC); Morbid obesity (CMS/HCC); Benign essential hypertension (CMS/HCC) Start: 02-15-2023 End: 02-15-2023 ambulatory [facility] Facility:[facility] Start: 02-15-2023 End: 02-15-2023 ambulatory MD Shan Castillo Work Phone: [facility] Work Phone: Start: 02-15-2023 End: 02-15-2023 Departed Referred MD Shan Castillo Work Phone: [facility] [place] Work Phone: Start: 01-19-2021 End: 01-20-[address] FELICITAS COOL Facility:[facility] Start: 05-20-[address] SHAN CASTILLO Facility: [facility] Start: 05-14-2020 End: 05-15-[address] SHAN CASTILLO Facility:[facility] Procedures Date Procedure Procedure Detail Performing Clinician Start: 01-20-2025 Hemoglobin glycosyla diane a1c Shan Castillo MD Work Phone: Start: 08-12-2024 Mammography Shan Castillo MD Work Phone: Start: 08-07-2024 IUD REMOVAL Song joshua MD Work Phone: Start: 08-07-2024 Urine test visual color cmprsn meths Song Tomas MD Work Phone: Start: 08-07-2024 IUD INSERTION Song stanford MD Work Phone: Start: 07-25-2024 Radex foot complete minimum 3 views Richard Rizo DPM Work Phone: Start: 07-15-2024 Hemoglobin glycosyla diane a1c Shan Castillo MD Work Phone: Start: 06-27-2024 Radex foot complete minimum 3 views Richard Rizo DPM Work Phone: Start: 06-13-2024 Radex foot complete minimum 3 views Richard Rizo DPM Work Phone: Start: 07-19-2023 Mammography Kassie steele LPN Start: 06-27-2023 Microscopic observat ion [Identifier] in Cervix by Cyto stain Kassie Gomez LPN Plan of Treatment Date Care Activity Detail Author Start: 06-27-2026 Screening for malign ant neoplasm of cervix [facility] Start: 12-10-2025 Glaucoma screening Diabetes: R etinopathy Screening [facility] Start: 08-12-2025 Screening for malign ant neoplasm of breast Mammogram [facility] Start: 07-21-2025 End: 07-21-2025 Patient encounter procedure 07/21/2025 9:00 AM EST [facility] [address] [facility] [address] [place] [address] Shan Castillo MD [address] [facility] [address] [place] [address] [facility] [place] [facility] Start: 07-15-2025 Urine screening for protein Diabetes: Urine Protein Screening [facility] Start: 07-14-2025 End: 07-14-2025 Patient encounter procedure [facility] Start: 04-22-2025 Hemoglobin A1c measurement Diabetes: Hemoglobin A1C [facility] Start: 03-26-2025 Influenza vaccination [facility] Comment on above: Postponed from 02/24 (Other Medical Reasons) Postponed from 02/24 (Other Medical Reasons) Start: 02-24-2025 Influenza vaccination Influenza Vacc ine (#1) [facility] Start: 01-20-2025 End: 01-20-2025 Patient encounter procedure 01/20/2025 8:30 AM EDT Office Visit [facility] [address] [facility] [facility] [address] [place] [address] Shan Castillo MD 112 [facility] [address] [place] [address] [facility] Start: 10-13-2024 Hemoglobin A1c measurement Diabetes: Hemoglobin A1C [facility] Start: 08-12-2024 End: 08-12-2024 Professional / ancillary services management 08/12/2024 4:30 PM EST Ancillary Procedure [facility] [place] [address] [place] [address] [facility] [place] Start: 08-07-2024 End: 08-07-2024 Patient encounter procedure 08/07/2024 10:15 AM EST Procedure Visit [facility] [address] [place] [phone] Song Tomas MD [address] [place] [address] [facility] Start: 07-25-2024 End: 07-25-2024 Patient encounter procedure 07/25/2024 9:15 AM EST Office Visit [facility] [address] [place] [phone] Richard Rizo DPM [address] [place] [address] [facility] Start: 07-20-2024 End: 08-29-2025 DBT Breast - bilateral screening Bilateral screening mammogram with tomosynthesis Imaging Routine Other screening mammogram Expected: 07/20/2024, Expires: 08/29/2025 [facility] Work Phone: Comment on above: Expected: 07/20/2024 , Expires: 08/29/2025 Start: 07-19-2024 Screening for malign ant neoplasm of breast Mammogram [facility] Start: 07-15-2024 End: 07-15-2025 Microalbumin/Creatinine panel in random Urine Microalbumin / creatinine urine ratio Lab Routine Uncontrolled diabetes mellitus with hyperglycemia, without long-term current use of insulin ([facility]) Expected: 07/15/2024 (Approximate), Expires: 07/15/2025 [facility] Work Phone: Comment on above: Expected: 07/15/2024 (Approximate), Expires: 07/15/2025 Start: 07-15-2024 End: 07-15-2024 Patient encounter procedure 07/15/2024 8:00 AM EST [facility] [address] [facility] [address] [place] [id number] Shan Castillo MD [address] [facility] [address] [place] [address] [facility] Start: 07-03-2024 End: 07-03-2024 Patient encounter procedure 07/03/2024 2:40 PM EST Office Visit [facility] [address] [place] [phone] Brianne Moore MD [address] [place] [address] [facility] Start: 07-02-2024 End: 07-02-2024 Patient encounter procedure [facility] Comment on above: Well woman exam with routine gynecological exam; Other screening mammogram; Intrauterine device surveillance Start: 06-27-2024 End: 06-27-2024 Patient encounter procedure 06/27/2024 2:40 PM EST Office Visit [facility] [address] [place] [phone] Brianne Moore MD [address] [place] [address] [facility] Start: 06-27-2024 End: 06-27-2024 Patient encounter procedure [facility] Comment on above: Arrived Start: 05-23-2024 Urine screening for protein Diabetes: Urine Protein Screening [facility] Start: 03-26-2024 Hemoglobin A1c measurement Diabetes: Hemoglobin A1C [facility] Start: 03-26-2024 End: 03-26-2024 Patient encounter procedure 03/26/2024 9:00 AM EDT Office Visit [facility] [address] [facility] [address] [place] [address] Shan Castillo MD [address] [facility] [address] [place] [address] [facility] Start: 02-25-2024 Influenza vaccination Influenza Vacc ine (#1) [facility] Start: 2010 Screening for malign ant neoplasm of cervix HPV/Cotest [facility] Immunizations Immunization Date Immunization Notes Care Provider Fa [facility] 03-17-2020 influenza, injectabl e, quadrivalent, contains preservative Kassie Kumarikles [employer] [facility] 03-17-2020 influenza virus vacc ine, unspecified formulation Kassie Dukles [employer] [facility] 05-24-2018 Influenza, injectabl e, Madin Suzi Canine Kidney, quadrivalent with preservative Kassie Dukles [employer] [facility] 05-04-2018 influenza, injectabl e, quadrivalent, preservative free Kassie Dukles [employer] [facility] 05-03-2017 influenza, seasonal, injectable, preservative free Kassie Dukles [employer] [facility] 03-10-2016 influenza, seasonal, injectable, preservative free Kassie Dukles [employer] [facility] 04-13-2015 influenza, seasonal, injectable, preservative free Kassie Dukles [employer] [facility] 04-02-2015 influenza virus vacc ine, split virus (incl. purified surface antigen) Kassie Dukles [employer] [facility] Payers Date Payer Category Payer Unknown [id number] 2022 [facility] [id number] 2022 Unknown BCBS BCBS xxxxxx [id number] 2022-Present [phone] [address] [place] [address] [id number] 2022 Unknown [id number] 1980 Unknown [id number] 3 1980 Unknown [id number] [id number] 3 1980 Unknown [id number] [id number] 3 1980 Unknown [id number] 2.16.840.1.619125.3.579.2.12 59 1980 Unknown [id number] 2.16.840.1.122567.3.579.2.12 59 1980 Unknown [id number] [id number] 59 1980 Unknown [id number] 2.16.840.1.887788.3.579.2.12 59 1980 Unknown [id number] 2.16.840.1.336322.3.579.2.12 59 1980 Unknown [id number] 2.16.840.1.333552.3.579.2.12 59 1980 Unknown [id number] 2.16.840.1.073470.3.579.2.12 59 1980 Unknown [id number] 2.16.840.1.451166.3.579.2.12 59 1980 Unknown [id number] 2.16.840.1.639473.3.579.2.12 59 1980 Unknown [id number] [id number] 59 1959 Self-pay 1959 Unknown [id number] Unknown MMO [id number] Unknown HCAP/HFA/FAP Active [id number] Unknown [id number] 1 Social History Date Type Detail Facility Tobacco smoking stat [facility] Unknown if ever smoked [facility] Work Phone: Start: 1980 Sex Assigned At Female F [facility] Start: 12-25-2023 [facility] History of tobacco use Cigarette Smoker [facility] Start: 12-18-2023 End: 12-25-2023 Cigarettes smoked current (pack per day) - Reported 1 [facility] Start: 12-25-2023 Tobacco use and exposure Smoke less tobacco non-user [facility] Start: 03-26-2024 End: 01-20-2025 Alcoholic beverage intake Ex-drinker (finding) [facility] Start: 12-18-2023 End: 01-20-2025 [id number] Health Literacy [facility] How often do you nee d to have someone help you when you read instructions, pamphlets, or other written material from your doctor or pharmacy [SILS] Never [facility] Do you belong to any clubs or organizations such as sabianist groups, unions, fraternal or athletic groups, or school groups? Yes [facility] Are you now , , , , never or living with a partner? [facility] How often to you hav e a drink containing alcohol? Monthly or less [facility] How often do you hav e 6 or more drinks on 1 occasion? Never [facility] How hard is it for y ou to pay for the very basics like food, housing, medical care, and heating Not very hard [facility] Do you feel stress - tense, restless, nervous, or anxious, or unable to sleep at night because your mind is troubled all the time - these days [OSQ] To some extent [facility] (I/We) worried wheth er (my/our) food would run out before (I/we) got money to buy more. Never true [facility] In the past 12 month s, was there a time when you were not able to pay the mortgage or rent on time? No [facility] Start: 06-27-2023 Tobacco Comment quite for 4 ye ars while having children [facility] Start: 01-05-2023 Alcohol Comment Alcohol: 1 or 2 drinks on typical day/monthly or less. Caffeine: 3-4 cups/day coffee, diet coke [facility] Start: 1980 Sex assigned at Not on file [facility] Functional Status Date Assessment Result Facility 01-20-2025 Patient Health Quest ionnaire 2 item (PHQ-2) [Reported] [facility] Clinical Notes 03-05-2024 to 03-10-2025 Telephone Encounter - HUGH Mcgovern - 03/10/2025 8:29 AM EDTTelephone Encounter - HUGH Mcgovern - 03/10/2025 8:29 AM EDTRkristen Castillo MD - 01/20/2025 8:50 AM EDTPatient Instructions Note Date & Type Note Facility 03-10-2025 Telephone encounter Note OARRS reviewed, Rx sent into patient's pharmacy. [facility] 03-10-2025 Miscellaneous Notes OARRS reviewed, Rx sent into patient's pharmacy. documented in this encounter [facility] 01-20-2025 History of Present illness Narrative Associated Problem(s): Morbid obesity ([facility]) Needs life style modification. Exercise Routinely Low Calorie Diet F/U in 12 weeks 3500 calorie deficit = 1lb weight loss Small portions TIming of meals Reduce Carbohydrate Intake High Protein Diet Associated Problem(s): Type 2 diabetes mellitus with diabetic nephropathy (HCC) No Tobacco use Follow ADA 1800 diet low carbohydrate Continue Med Compliance Goal LDL less than 100 Goal BP 130/80 Goal HgbA1c < 7.0% Monitor Feet, monitor for infection Needs Exercise Yearly eye exams Prior to your visit today we reviewed your chart and outlined testing and treatment needed for your care. Reviewed poissble complications of diabetes including, loss of vision, kidney failure and increased risk of heart attacks and stroke. We made recommendations on how to control your blood sugars, and minimize your risk of these complications. We discussed your current barriers to a healthy living and importance of healthy diet and exercise. Associated Problem(s): Uncontrolled diabetes mellitus with hyperglycemia, without long-term current use of insulin (HCC) A1c is 5.2 previously 5.1. It is now controlled with current regimen Images from the original note were not included. HPI Diabetes Additional comments: Last 5.1 Last edited by Marleni Colon MA on 01/20/2025 6:59 AM. Subjective Patient ID: Millicent Arreola is a 44 y.o. female who presents for Diabetes (Last 5.1) and Hypertension. Millicent is here today for a weight check. She started Adipex on 05/23/23. Weight 05/23/23 - 291 Today wt. 245lb Pt has not been walking as much but she is doing strength training Pt is complaining of having rashes under her breasts and under her stomach she is using powder and cream but this is not helping her Stress fracture in feet Diabetes She presents for her follow-up diabetic visit. She has type 2 diabetes mellitus. No MedicAlert identification noted. Her disease course has been worsening. There are no hypoglycemic associated symptoms. Pertinent negatives for hypoglycemia include no confusion, dizziness, nervousness/anxiousness, speech difficulty or tremors. There are no diabetic associated symptoms. Pertinent negatives for diabetes include no chest pain and no fatigue. There are no hypoglycemic complications. Symptoms are worsening. There are no diabetic complications. Risk factors for coronary artery disease include diabetes mellitus. When asked about current treatments, none were reported. She is compliant with treatment none of the time. Her weight is increasing steadily. When asked about meal planning, she reported none. She has not had a previous visit with a dietitian. She never participates in exercise. Her home blood glucose trend is increasing steadily. An CHUYITA inhibitor/angiotensin II receptor katy is being taken. She does not see a musical string maker.Eye exam is not current. Hypertension Pertinent negatives include no chest pain or shortness of breath. Over the past 2 weeks, how often have you been bothered by any of the following problems? Little interest or pleasure in doing things: Not at all Feeling down, depressed, or hopeless: Not at all Patient Health Questionnaire-2 Score: 0 Current Outpatient Medications on File Prior to Visit Medication Sig Dispense Refill albuterol HFA 90 mcg/act inhaler INHALE 2 PUFFS BY MOUTH EVERY 4 HOURS NEEDED 18 g 3 escitalopram (Lexapro) 20 MG tablet TAKE 1 TABLET DAILY 90 tablet 3 Zwufmqskwkb-Qocdvtjbe-Isdqgj (Trelegy Ellipta) 200-62.5-25 MCG/ACT aerosol powder Inhale 1 puff Daily 1 each 11 hydroCHLOROthiazide (HYDRODiuril) 25 MG tablet Take 1 tablet (25 mg) by mouth Daily 90 tablet 3 lactulose (Chronulac) 10 GM/15ML solution TAKE 15ML BY MOUTH IN THE MORNING AND BEFORE BEDTIME 2700 mL 1 lisinopril 40 MG tablet TAKE 1 TABLET DAILY 100 tablet 3 montelukast (Singulair) 10 MG tablet Take 1 tablet (10 mg) by mouth at bedtime 90 tablet 3 phentermine (Adipex-P) 37.5 MG tablet Take 1 tablet (37.5 mg) by mouth in the morning. Take before meals. 30 tablet 0 semaglutide (Rybelsus) 14 MG tablet Take 1 tablet (14 mg) by mouth in the morning. Take before meals. 90 tablet 3 [DISCONTINUED] atorvastatin (Lipitor) 20 MG tablet TAKE 1 TABLET DAILY 100 tablet 3 No current facility-administered medications on file prior to visit. I have reviewed and reconciled the history and medication list with the patient today. No Known Allergies Social History Tobacco Use Smoking status: Every Day Current packs/day: 1.00 Average packs/day: 1 pack/day for 15.0 years (15.0 ttl pk-yrs) Types: Cigarettes Smokeless tobacco: Never Tobacco comments: quite for 4 years while having children Substance Use Topics Alcohol use: Not Currently Alcohol/week: 1.0 standard drink of alcohol Types: 1 Cans of beer per week Comment: Alcohol: 1 or 2 drinks on typical day/monthly or less. Caffeine: 3-4 cups/day coffee, diet coke Drug use: Never Family History Problem Relation Name Age of Onset Hypertension Mother Laura Diabetes Mother Laura Lymphoma Father Chuy Basal cell carcinoma Father Chuy Diabetes Father Wisdom Hypertension Father Wisdom Cancer Father Wisdom Heart disease Maternal Grandmother Jolynn Heart failure Maternal Grandmother Jolynn Cancer Paternal Grandmother June female cancer No Known Problems Daughter No Known Problems Daughter No Known Problems Son Past Medical History: Diagnosis Date Allergic Anemia Asthma (HCC) Depression Dysmenorrhea Gestational diabetes (HHS-HCC) Headache Hypertension May 2023 Nephrolithiasis Obesity Tonsillar abscess 08/2013 Peritonsillar Varicella zoster Past Surgical History: Procedure Laterality Date ABDOMINAL SURGERY June 2018 CHOLECYSTECTOMY IUD INSERTION 11/06/2014 Mirena PAP SMEAR 01/2017 negative KALYN/HPV NH LAP,CHOLECYSTECTOMY 07/2018 VAGINAL DELIVERY x3 Visit Vitals BP 114/82 Pulse 101 Ht 5' 2 Wt 245 lb SpO2 97% BMI 44.81 kg/m OB Status Having periods Smoking Status Every Day BSA 2.2 m Review of Systems Constitutional: Negative for fatigue. Respiratory: Negative for shortness of breath. Cardiovascular: Negative for chest pain. Neurological: Negative for dizziness, tremors and speech difficulty. Psychiatric/Behavioral: Negative for confusion. The patient is not nervous/anxious. Objective Physical Exam Constitutional: General: She is not in acute distress. Appearance: Normal appearance. HENT: Head: Normocephalic. Neck: Vascular: No carotid bruit. Cardiovascular: Rate and Rhythm: Normal rate and regular rhythm. Pulmonary: Effort: Pulmonary effort is normal. No respiratory distress. Breath sounds: Normal breath sounds. Neurological: General: No focal deficit present. Mental Status: She is alert and oriented to person, place, and time. Psychiatric: Mood and Affect: Mood normal. Office Visit on 01/20/2025 Component Date Value Ref Range Status Hemoglobin A1C 01/20/2025 5.2 Final Assessment/Plan Problem List Items Addressed This Visit Uncontrolled diabetes mellitus with hyperglycemia, without long-term current use of insulin (HCC) A1c is 5.2 previously 5.1. It is now controlled with current regimen Relevant Orders POCT Glycated hemoglobin, total (Completed) Type 2 diabetes mellitus with diabetic nephropathy (HCC) No Tobacco use Follow ADA 1800 diet low carbohydrate Continue Med Compliance Goal LDL less than 100 Goal BP 130/80 Goal HgbA1c < 7.0% Monitor Feet, monitor for infection Needs Exercise Yearly eye exams Prior to your visit today we reviewed your chart and outlined testing and treatment needed for your care. Reviewed poissble complications of diabetes including, loss of vision, kidney failure and increased risk of heart attacks and stroke. We made recommendations on how to control your blood sugars, and minimize your risk of these complications. We discussed your current barriers to a healthy living and importance of healthy diet and exercise. Morbid obesity (CMS-HCC) Needs life style modification. Exercise Routinely Low Calorie Diet F/U in 12 weeks 3500 calorie deficit = 1lb weight loss Small portions TIming of meals Reduce Carbohydrate Intake High Protein Diet Other Visit Diagnoses Intertrigo - Primary Relevant Medications fluconazole (Diflucan) 100 MG tablet Hypertriglyceridemia Relevant Medications atorvastatin (Lipitor) 20 MG tablet Follow up in about 3 months (around 04/22/2025) for Diabetes. documented in this encounter [facility] 12-06-2024 Telephone encounter Note OARRS reviewed, Rx sent into patient's pharmacy. [facility] 12-06-2024 Miscellaneous Notes OARRS reviewed, Rx sent into patient's pharmacy. documented in this encounter [facility] 08-07-2024 History of Present illness Narrative Associated Order(s): IUD Removal; IUD Insertion Post-Procedure Diagnose(s): Encounter for IUD removal and reinsertion Images from the original note were not included. Patient ID: Millicent Arreola is a 44 y.o. female. IUD Removal Date/Time: 08/07/2024 10:46 AM Performed by: Song Tomas MD Authorized by: Song Tomas MD Consent: Consent obtained: Verbal Consent given by: Patient Procedure risks and benefits discussed: yes Patient questions answered: yes Patient agrees, verbalizes understanding, and wants to proceed: yes Procedure: Removed with no complications: yes Other reason for removal: IUD Insertion Performed by: Song Tomas MD Authorized by: Song Tomas MD Procedure: IUD removal and insertion Other reason for removal: Strings visualized: yes Cervix cleaned with: iodopovidone Tenaculum applied to cervix: yes Cervix manually dilated: no IUD grasped by forceps: yes IUD removed: yes Date/Time of Removal: 08/07/2024 10:47 AM Removed without complications: yes IUD intact: yes risk: reasonably certain the patient is not Date/Time of Insertion: 08/07/2024 10:47 AM Speculum placed in vagina: yes Cervix cleaned and prepped: yes Tenaculum/Allis/Ring Forceps applied to cervix: yes Anesthesia used: no Uterus sound depth (cm): 8 IUD inserted without complications: yes OSM: 52 mg Levonorgestrel 20.1 MCG/DAY Strings trimmed to (cm): 3 Patient tolerated procedure well: yes Intended removal date: 8 years documented in this encounter [facility] 07-25-2024 History of Present illness Narrative [facility] VISIT CC: Stress Reaction, Left Foot HPI: This 44 y.o. female presents for follow up of less foot stress fracture. Patient relates since that last she has continued to decrease her smoking. States she is ambulating in supportive shoe gear with carbon fiber plate. Relates no edema or ecchymosis to left foot. States she is having no pain to palpation of fracture site or with activity. Denies any other pedal complaints. PCP: Shan Castillo MD 03/26/24 Past Medical History: Diagnosis Date Allergic Anemia Asthma (CMS/HCC) Depression (CMS/HCC) Dysmenorrhea Gestational diabetes Headache Hypertension (CMS/HCC) May 2023 Nephrolithiasis Obesity Tonsillar abscess 08/2013 Peritonsillar Varicella zoster Current Outpatient Medications Medication Sig Dispense Refill albuterol HFA 90 mcg/act inhaler INHALE 2 PUFFS BY MOUTH EVERY 4 HOURS NEEDED 18 g 3 atorvastatin (Lipitor) 20 MG tablet TAKE 1 TABLET DAILY 100 tablet 3 escitalopram (Lexapro) 20 MG tablet TAKE 1 TABLET DAILY 90 tablet 3 Qkheeyfexrw-Anatlwaic-Inezku (Trelegy Ellipta) 200-62.5-25 MCG/ACT aerosol powder Inhale 1 puff Daily 1 each 11 hydroCHLOROthiazide (HYDRODiuril) 25 MG tablet Take 1 tablet (25 mg) by mouth Daily 90 tablet 3 lactulose (Chronulac) 10 GM/15ML solution Take 15 mL (10 g) by mouth in the morning and 15 mL (10 g) before bedtime. 900 mL 0 lisinopril 40 MG tablet TAKE 1 TABLET DAILY 100 tablet 3 montelukast (Singulair) 10 MG tablet Take 1 tablet (10 mg) by mouth at bedtime 90 tablet 3 ondansetron (Zofran) 4 MG tablet Take 1 tablet (4 mg) by mouth every 8 (eight) hours if needed for nausea or vomiting for up to 10 days 30 tablet 0 phentermine (Adipex-P) 37.5 MG tablet Take 1 tablet (37.5 mg) by mouth in the morning. Take before meals. 30 tablet 0 semaglutide (Rybelsus) 14 MG tablet Take 1 tablet (14 mg) by mouth in the morning. Take before meals. 90 tablet 3 No current facility-administered medications for this visit. Physical examination: [facility] 06/28/2024 On General Observation: Patient is a pleasant, cooperative, well developed 44 y.o. adult female. The patient is alert and oriented to time, place and person. Patient has normal affect and mood. Vascular: DP and PT pulses are palpable. CFT less than 3 seconds to all digits. Skin temperature is warm to warm from proximal to distal. No edema noted. No ecchymosis noted. Neuro: Light touch intact. Dermatological: Skin appears well hydrated and supple. Good color, texture, turgor. No open lesions present. Webspaces clean and dry 1-4. No ecchymosis. No edema noted. Musculoskeletal/Orthopaedic: General foot morphology: Rectus foot type. +4/5 muscle strength Dorsiflexion, Plantarflexion, Inversion, Eversion. No pain to palpation of peroneal tendons retromalleolar or at 5th metatarsal base insertion. No pain to palpation of dorsal 5th metatarsal base or laterally. Ankle joint ROM is decreased. Prominent 5th metatarsal styloid process of left foot. Imaging Result: 07/25/24 Radiographs: 3 views left foot were taken and reviewed. Radiographic impression: In comparison to prior film, there is now near complete trabeculation across fracture of 5th metatarsal styloid process. There is not acute angulation or displacement noted. No acute osseous changes. No osteolytic or osteoblastic lesions appreciated. No soft tissue gas. No discernible mass noted. Joint spaces are well maintained. Bone density appear typical for age of patient. Assessment: This is a 44 y.o. female patient presenting today for stress fracture of 5th metatarsal with routine healing Plan: A comprehensive history and physical examination were preformed. The patient was educated on clinical and radiographic findings, diagnosis and treatment plans. Patient state that she understands all that has been explained and all questions were answered to her apparent satisfaction. -Patient seen and evaluated -XR of left foot obtained and reviewed. We discussed there is nearly complete trabeculation of prior fracture line at 5th metatarsal styloid process in comparison to prior film. We discussed this is not displaced and is showing signs of healing. We discussed given her absent symptoms on exam and with current activity as well as her radiographic evidence of healing she is to start WBAT in supportive shoe gear with carbon fiber plate for the next 2-3 weeks. We discussed it is ok to now return to low impact activity including exercise bike, elliptical, or short distance walking. We discussed continuing to avoid high impact activity for the next month including running or heavy lifting. -Activity as dictated by symptoms -Ibuprofen/Tylenol as needed for pain -Smoking cessation discussed. We discussed continued smoking negatively impacts bone healing which could ultimately lead to delayed bone healing or non union of fracture. Patient expressed understanding. -We discussed continuing OTC Vitamin D supplementation. Patient expressed understanding. Follow up PRN Richard Rizo DPM A total of 30 minutes was spent in formulation of this note, review of charts, labs, imaging with a minimum of 50% of the time spent in face to face with with the patient. All questions and concerns were answered to the patients satisfaction. documented in this encounter [facility] 07-22-2024 Telephone encounter Note Patient called and states that 3 out of 5 family member have to stomach flu. They also are have painful stomach cramps with diarrhea. Patient is asking for Zofran to be called into [facility] and something for all the cramping as well. [facility] 07-22-2024 Miscellaneous Notes Patient called and states that 3 out of 5 family member have to stomach flu. They also are have painful stomach cramps with diarrhea. Patient is asking for Zofran to be called into [facility] and something for all the cramping as well. documented in this encounter [facility] 07-15-2024 History of Present illness Narrative Associated Problem(s): Severe persistent asthma, uncomplicated (CMS/HCC) Well controlled Associated Problem(s): Slow transit constipation Increase water Add Senokot S Miralax daily Associated Problem(s): Benign essential hypertension (CMS/HCC) Our specific goals, for your hypertension, is to keep your blood pressure less than 140/90, and the importance of weight control. We made recommendations on how to control your blood pressure, and minimize your risk of these copmplications. We also discussed your current barriers to a healthy living and importance of healthy diet and exercise. Prior to your visit today we have reviewed your chart and formed a plan to assist with providing you the best possible care. We reviewed the possible complications of hypertension including, stroke, heart failure and kidney impairment. In addition, we discussed your medications, the importance of taking them as prescribed. DASH diet handouts Associated Problem(s): Hyperlipidemia, unspecified (CMS/HCC) This is a chronic medical condition that is stable since last assessment. No changes in treatment are suggested at this time. Continue Current meds. Associated Problem(s): 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) No Tobacco use Follow ADA 1800 diet low carbohydrate Continue Med Compliance Goal LDL less than 100 Goal BP 130/80 Goal HgbA1c < 7.0% Monitor Feet, monitor for infection Needs Exercise Yearly eye exams Prior to your visit today we reviewed your chart and outlined testing and treatment needed for your care. Reviewed poissble complications of diabetes including, loss of vision, kidney failure and increased risk of heart attacks and stroke. We made recommendations on how to control your blood sugars, and minimize your risk of these complications. We discussed your current barriers to a healthy living and importance of healthy diet and exercise. Images from the original note were not included. HPI Diabetes Additional comments: Last A1c was 5.3 Last edited by Marleni Colon MA on 07/15/2024 7:34 AM. Subjective Patient ID: Millicent Arreola is a 44 y.o. female who presents for Diabetes (Last A1c was 5.3), Hypertension, and Weight Check. Millicent is here today for a weight check. She started Adipex on 05/23/23. Weight 05/23/23 - 291 Today wt. 246lb Pt has not had a BM for 11 days day 6 of miralax, enema, berries ,Rasin bran , daily stool softeners , also has Hemorids from trying to go to the bathroom Diabetes She presents for her follow-up diabetic visit. She has type 2 diabetes mellitus. No MedicAlert identification noted. Her disease course has been worsening. There are no hypoglycemic associated symptoms. Pertinent negatives for hypoglycemia include no confusion, dizziness, nervousness/anxiousness, speech difficulty or tremors. There are no diabetic associated symptoms. Pertinent negatives for diabetes include no chest pain and no fatigue. There are no hypoglycemic complications. Symptoms are worsening. There are no diabetic complications. Risk factors for coronary artery disease include diabetes mellitus. When asked about current treatments, none were reported. She is compliant with treatment none of the time. Her weight is increasing steadily. When asked about meal planning, she reported none. She has not had a previous visit with a dietitian. She never participates in exercise. Her home blood glucose trend is increasing steadily. An CHUYITA inhibitor/angiotensin II receptor katy is being taken. She does not see a musical string maker.Eye exam is not current. Hypertension Pertinent negatives include no chest pain. Current Outpatient Medications on File Prior to Visit Medication Sig Dispense Refill albuterol HFA 90 mcg/act inhaler INHALE 2 PUFFS BY MOUTH EVERY 4 HOURS NEEDED 18 g 3 atorvastatin (Lipitor) 20 MG tablet TAKE 1 TABLET DAILY 100 tablet 3 escitalopram (Lexapro) 20 MG tablet TAKE 1 TABLET DAILY 90 tablet 3 Dsszlbvlvok-Temdllzcd-Jliqsr (Trelegy Ellipta) 200-62.5-25 MCG/ACT aerosol powder Inhale 1 puff Daily 1 each 11 hydroCHLOROthiazide (HYDRODiuril) 25 MG tablet Take 1 tablet (25 mg) by mouth Daily 90 tablet 3 lisinopril 40 MG tablet TAKE 1 TABLET DAILY 100 tablet 3 montelukast (Singulair) 10 MG tablet Take 1 tablet (10 mg) by mouth at bedtime 90 tablet 3 phentermine (Adipex-P) 37.5 MG tablet Take 1 tablet (37.5 mg) by mouth in the morning. Take before meals. 30 tablet 0 semaglutide (Rybelsus) 14 MG tablet Take 1 tablet (14 mg) by mouth in the morning. Take before meals. 90 tablet 3 No current facility-administered medications on file prior to visit. I have reviewed and reconciled the history and medication list with the patient today. No Known Allergies Social History Tobacco Use Smoking status: Every Day Current packs/day: 1.00 Average packs/day: 1 pack/day for 15.0 years (15.0 ttl pk-yrs) Types: Cigarettes Smokeless tobacco: Never Tobacco comments: quite for 4 years while having children Substance Use Topics Alcohol use: Not Currently Alcohol/week: 1.0 standard drink of alcohol Types: 1 Cans of beer per week Comment: Alcohol: 1 or 2 drinks on typical day/monthly or less. Caffeine: 3-4 cups/day coffee, diet coke Drug use: Never Family History Problem Relation Name Age of Onset Hypertension Mother Laura Diabetes Mother Laura Lymphoma Father Wisdom Basal cell carcinoma Father Wisdom Diabetes Father Wisdom Hypertension Father Chuy Cancer Father Wisdom Heart disease Maternal Grandmother Jolynn Heart failure Maternal Grandmother Jolynn Cancer Paternal Grandmother June female cancer No Known Problems Daughter No Known Problems Daughter No Known Problems Son Past Medical History: Diagnosis Date Allergic Anemia Asthma (CMS/HCC) Depression (CMS/HCC) Dysmenorrhea Gestational diabetes Headache Hypertension (CMS/HCC) May 2023 Nephrolithiasis Obesity Tonsillar abscess 08/2013 Peritonsillar Varicella zoster Past Surgical History: Procedure Laterality Date ABDOMINAL SURGERY June 2018 CHOLECYSTECTOMY IUD INSERTION 11/06/2014 Mirena PAP SMEAR 01/2017 negative KALYN/HPV NH LAP,CHOLECYSTECTOMY 07/2018 VAGINAL DELIVERY x3 Visit Vitals BP 122/88 Pulse 95 Ht 5' 2 Wt 246 lb LMP 06/28/2024 SpO2 97% BMI 44.99 kg/m OB Status Having periods Smoking Status Every Day BSA 2.21 m Review of Systems Constitutional: Negative for fatigue. Cardiovascular: Negative for chest pain. Gastrointestinal: Positive for constipation. Neurological: Negative for dizziness, tremors and speech difficulty. Psychiatric/Behavioral: Negative for confusion. The patient is not nervous/anxious. Objective Physical Exam Assessment/Plan Problem List Items Addressed This Visit Uncontrolled diabetes mellitus with hyperglycemia, without long-term current use of insulin ([facility]) Relevant Orders POCT Glycated hemoglobin, total (Completed) Microalbumin / creatinine urine ratio Hyperlipidemia, unspecified ([facility]) This is a chronic medical condition that is stable since last assessment. No changes in treatment are suggested at this time. Continue Current meds. Type 2 diabetes mellitus with diabetic nephropathy ([facility]) No Tobacco use Follow ADA 1800 diet low carbohydrate Continue Med Compliance Goal LDL less than 100 Goal BP 130/80 Goal HgbA1c < 7.0% Monitor Feet, monitor for infection Needs Exercise Yearly eye exams Prior to your visit today we reviewed your chart and outlined testing and treatment needed for your care. Reviewed poissble complications of diabetes including, loss of vision, kidney failure and increased risk of heart attacks and stroke. We made recommendations on how to control your blood sugars, and minimize your risk of these complications. We discussed your current barriers to a healthy living and importance of healthy diet and exercise. Morbid obesity (CMS/HCC) Benign essential hypertension ([facility]) - Primary Our specific goals, for your hypertension, is to keep your blood pressure less than 140/90, and the importance of weight control. We made recommendations on how to control your blood pressure, and minimize your risk of these copmplications. We also discussed your current barriers to a healthy living and importance of healthy diet and exercise. Prior to your visit today we have reviewed your chart and formed a plan to assist with providing you the best possible care. We reviewed the possible complications of hypertension including, stroke, heart failure and kidney impairment. In addition, we discussed your medications, the importance of taking them as prescribed. DASH diet handouts Severe persistent asthma, uncomplicated (CMS/HCC) Well controlled Type 2 diabetes mellitus with other specified complication ([facility]) Slow transit constipation Increase water Add Senokot S Miralax daily Relevant Medications lactulose (Chronulac) 10 GM/15ML solution Follow up in about 6 months (around 01/12/2025). documented in this encounter [facility] 07-02-2024 History of Present illness Narrative Images from the original note were not included. Song Tomas MD Obstetrics and Gynecology Patient: Millicent Arreola, : 1980 (44 y.o.) DOS 07/02/24 Exam Date: 07/02/2024 HPI: Yearly exam Her IUD is due for changing Menses are reg, light She has lost 80lbs with calorie restriction and exercise C/o vag itch Visit Vitals BP 122/82 Wt 229 lb LMP 06/28/2024 BMI 41.88 kg/m OB Status Having periods Smoking Status Every Day BSA 2.13 m OB History Para Term AB Living 3 0 0 0 0 3 SAB IAB Ectopic Multiple Live Births 0 0 0 0 0 # Outcome Date GA Lbr Landen/2nd Weight Sex Type Anes PTL Lv 3 2013 M 2 2009 F 1 2008 F Obstetric Comments Pap: 07/19-Neg KALYN: HPV Neg Mammo: 07/19/23-Neg ([facility]) Liletta IUD; every month, scant blood loss, LMP: 06/28/24 Medication and Allergies Medication Documentation Review Audit Reviewed by Karolyn Díaz MA (Marketing Communications Specialist) on 07/02/24 at 1020 Medication Order Taking? Sig Documenting Provider Last Dose Status albuterol HFA 90 mcg/act inhaler [id number] INHALE 2 PUFFS BY MOUTH EVERY 4 HOURS NEEDED Shan Castillo MD Active atorvastatin (Lipitor) 20 MG tablet [id number] TAKE 1 TABLET DAILY Shan Castillo MD Active escitalopram (Lexapro) 20 MG tablet [id number] TAKE 1 TABLET DAILY Shan Castillo MD Active Patient not taking: Discontinued 07/02/24 1020 Pxfrmsbutka-Agtjqtfjq-Kxlwdv (Trelegy Ellipta) 200-62.5-25 MCG/ACT aerosol powder [id number] Inhale 1 puff Daily Brianne Moore MD Active hydroCHLOROthiazide (HYDRODiuril) 25 MG tablet [id number] Take 1 tablet (25 mg) by mouth Daily HUGH Mcgovern Active lisinopril 40 MG tablet [id number] TAKE 1 TABLET DAILY Shan Castillo MD Active montelukast (Singulair) 10 MG tablet [id number] Take 1 tablet (10 mg) by mouth at bedtime Brianne Moore MD Active phentermine (Adipex-P) 37.5 MG tablet [id number] Take 1 tablet (37.5 mg) by mouth in the morning. Take before meals. HUGH Mcgovern Active semaglutide (Rybelsus) 14 MG tablet [id number] Take 1 tablet (14 mg) by mouth in the morning. Take before meals. Shan Castillo MD Active No Known Allergies Past Medical History: Diagnosis Date Allergic Anemia Asthma (CMS/HCC) Depression (CMS/HCC) Dysmenorrhea Gestational diabetes Headache Hypertension (CMS/HCC) May 2023 Nephrolithiasis Obesity Tonsillar abscess 08/2013 Peritonsillar Varicella zoster Past Surgical History: Procedure Laterality Date ABDOMINAL SURGERY June 2018 CHOLECYSTECTOMY IUD INSERTION 11/06/2014 Mirena PAP SMEAR 01/2017 negative KALYN/HPV NH LAP,CHOLECYSTECTOMY 07/2018 VAGINAL DELIVERY x3 Physical Exam: Objective Physical Exam Constitutional: Appearance: Normal appearance. Genitourinary: Vulva normal. Vaginal discharge present. Vaginal exam comments: Wet prep: hyphae. Right Adnexa: not palpable. Left Adnexa: not palpable. No cervical lesion. IUD strings visualized. Uterus is not enlarged or tender. Breasts: Right: Normal. Left: Normal. Pulmonary: Effort: Pulmonary effort is normal. Abdominal: Palpations: Abdomen is soft. Neurological: Mental Status: She is alert. Associated Treatments and Results - ICD-10-CM 1. Well woman exam with routine gynecological exam Z01.419 2. Other screening mammogram Z12.31 Bilateral screening mammogram with tomosynthesis 3. Intrauterine device surveillance Z30.431 4. Vaginal infection N76.0 Precert for IUD change Miconazole for vag yeast Assessment/Plan Orders Placed This Encounter Procedures Bilateral screening mammogram with tomosynthesis U/S and spot compression if indicated Standing Status: Future Standing Expiration Date: 08/29/2025 Order Specific Question: Reason for exam: Answer: screen Order Specific Question: Is the patient ? Answer: No documented in this encounter [facility] 07-01-2024 Telephone encounter Note OARRS reviewed, Rx sent into patient's pharmacy. [facility] 07-01-2024 Miscellaneous Notes OARRS reviewed, Rx sent into patient's pharmacy. documented in this encounter [facility] 06-27-2024 History of Present illness Narrative Millicent Arreola is a very pleasant 44 y.o. year old female who comes to the office today with the chief complaint of concern about environmental allergies. She was diagnosed with asthma at age 14. Exercise induced asthma at that time. She has not had much asthma symptoms since then. She rarely needs her rescue bronchodilator. She only has asthma symptoms in winter. Cold air would be a trigger for her. Her daughter and son have severe allergic rhinoconjunctivitis. She has marco antonio sick since January with cough nasal airway obstruction rhinorrhea sneeze and nasal itching. She also has itchy watery eyes and a sense of water in her ears. She has tried Fexofenadine D which helped made her about 80% better. She tried Loratadine which makes her about 80% better. If she is around pets at a relative she will have throat itching itchy watery puffy eyes and hives. She will also have asthma symptoms with wheeze. EXAM The patient appears comfortable in the office today. Lungs are clear to auscultation bilaterally. The oral mucosa is pink and healthy without any lesions or ulcers. The palate elevates in the midline. The nasal mucosa is pink and healthy. There is no epistaxis mucopus or nasal polyposis noted. The nasal septum is approximately in the midline. The skin is clear of any lesions, excoriations, or erythema. Spirometry performed in the office today under direct physician supervision shows no scooping of the flow volume loop and an FEV1 of 130 percent of predicted. Overall she has normal spirometry. Skin testing performed in the office today under direct physician supervision is positive for cat dog dust mite and several outdoor pollens. IMPRESSION: Allergic rhinoconjunctivitis - We agreed that she would use cetirizine 40 mg and Pataday prophylactically prior to animal dander exposure. I cautioned her about the potential for sedation with the higher dose of cetirizine and she understands and will avoid driving. Moderate persistent asthma - We agreed that prior to animal dander exposure at neighbors and family members houses that she would try and have the neighbor sequestered the pet open a window and that she would pretreat herself with Pataday montelukast and Trelegy. We agreed she would also have her albuterol on hand at these times. We discussed the potential side effects of montelukast including emotional side effects and agreed she would stop this medication if any of these are noted. Follow-up is arranged on an as needed basis. documented in this encounter [facility] 06-27-2024 History of Present illness Narrative [facility] VISIT CC: Stress Reaction, Left Foot HPI: This 44 y.o. female presents for follow up of left foot pain with concern for stress reaction of 5th metatarsal bone. She relates her pain has significantly decreased since wearing the the surgical shoe. She states she has been compliant with the surgical shoe at wearing at all times. States she has modified activity as directed. Relates no increase in edema or pain, states no ecchymosis has occurred. Relates she does not take Vitamin D and is a current every day smoker. Denies any other pedal complaints. PCP: Shan Castillo MD 03/26/24 Past Medical History: Diagnosis Date Allergic Anemia Asthma (CMS/[facility]) Depression (CMS/[facility]) Dysmenorrhea Gestational diabetes Headache Hypertension (CMS/HCC) May 2023 Nephrolithiasis Obesity Tonsillar abscess 08/2013 Peritonsillar Varicella zoster Current Outpatient Medications Medication Sig Dispense Refill albuterol HFA 90 mcg/act inhaler INHALE 2 PUFFS BY MOUTH EVERY 4 HOURS NEEDED 18 g 3 atorvastatin (Lipitor) 20 MG tablet TAKE 1 TABLET DAILY 100 tablet 3 escitalopram (Lexapro) 20 MG tablet TAKE 1 TABLET DAILY 90 tablet 3 fluconazole (Diflucan) 150 MG tablet Take 1 tablet then three days later if still with symptoms take 1 tablet 2 tablet 0 hydroCHLOROthiazide (HYDRODiuril) 25 MG tablet Take 1 tablet (25 mg) by mouth Daily 90 tablet 3 lisinopril 40 MG tablet TAKE 1 TABLET DAILY 100 tablet 3 phentermine (Adipex-P) 37.5 MG tablet Take 1 tablet (37.5 mg) by mouth in the morning. Take before meals. 30 tablet 0 semaglutide (Rybelsus) 14 MG tablet Take 1 tablet (14 mg) by mouth in the morning. Take before meals. 90 tablet 3 No current facility-administered medications for this visit. Physical examination: There were no vitals taken for this visit. On General Observation: Patient is a pleasant, cooperative, well developed 44 y.o. adult female. The patient is alert and oriented to time, place and person. Patient has normal affect and mood. Vascular: DP and PT pulses are palpable. CFT less than 3 seconds to all digits. Skin temperature is warm to warm from proximal to distal. No edema noted. No ecchymosis noted. Neuro: Light touch intact. Dermatological: Skin appears well hydrated and supple. Good color, texture, turgor. No open lesions present. Webspaces clean and dry 1-4. No ecchymosis. No edema noted. Musculoskeletal/Orthopaedic: General foot morphology: Rectus foot type. +4/5 muscle strength Dorsiflexion, Plantarflexion, Inversion, Eversion. No pain to palpation of peroneal tendons retromalleolar or at 5th metatarsal base insertion. Mild pain to palpation of dorsal 5th metatarsal base as well as laterally. Ankle joint ROM is decreased. Prominent 5th metatarsal styloid process of left foot. Radiographs: 3 views left foot were taken and reviewed. Radiographic impression: In comparison to prior film, there is now obvious non displaced fracture of 5th metatarsal styloid process. No acute osseous changes. No osteolytic or osteoblastic lesions appreciated. No soft tissue gas. No discernible mass noted. Joint spaces are well maintained. Bone density appear typical for age of patient. Assessment: This is a 44 y.o. female patient presenting today for stress fracture of 5th metatarsal Plan: A comprehensive history and physical examination were preformed. The patient was educated on clinical and radiographic findings, diagnosis and treatment plans. Patient state that she understands all that has been explained and all questions were answered to her apparent satisfaction. -Patient seen and evaluated -XR of left foot obtained and reviewed. We discussed there is now obvious fracture line at 5th metatarsal styloid process in comparison to prior film. We discussed this is not displaced and we will continue with protected WB in surgical shoe at all times or with carbon fiber plate in Chang tennis shoe or equivalent. We discussed where to obtain carbon fiber plate and appropriate use. No barefoot walking. -RICE therapy. -Ibuprofen/Tylenol as needed for pain -Smoking cessation discussed. We discussed continued smoking negatively impacts bone healing which could ultimately lead to delayed bone healing or non union of fracture. Patient expressed understanding. -We discussed starting OTC Vitamin D supplementation. Patient expressed understanding. Follow up in 4 weeks for repeat XR or sooner if needed Richard Rizo DPM A total of 30 minutes was spent in formulation of this note, review of charts, labs, imaging with a minimum of 50% of the time spent in face to face with with the patient. All questions and concerns were answered to the patients satisfaction. documented in this encounter [facility] 06-27-2024 Instructions Richard Rizo DPM - 06/27/2024 9:15 AM EST Carbon Fiber Plate, Left Foot -Buy in your shoe size and wear in your Chang. Put under your shoe liner. Weightbearing as tolerated in supportive shoe gear with carbon fiber plate or surgical shoe. No barefoot walking Continue activity modification Rest, Ice, Ibuprofen or Tylenol for pain management documented in this encounter [facility] 06-13-2024 History of Present illness Narrative [facility] VISIT CC: Left Foot pain, Callused tissue left foot HPI: This 44 y.o. female presents complaining of left foot pain and a concern for a callus or wart on the left foot. States this has been going on for a few weeks. Relates she has tired ibuprofen, massage, shoe gear modification without relief. States she did purchase CBD ointment which has relieved her pain for short durations of time. Relates she is very active and works out daily, she has lost near 100 pounds over the past year. States she has increased lateral foot pain as well. Admits to pain with pressure to this area. Pain is moderate and rated as 7-8/10. Patient denies shaving the area down. Denies any other pedal complaints. PCP: Shan Castillo MD 03/26/24 Past Medical History: Diagnosis Date Allergic Anemia Asthma ([facility]) Depression ([facility]) Dysmenorrhea Gestational diabetes Headache Hypertension ([facility]) May 2023 Nephrolithiasis Obesity Tonsillar abscess 08/2013 Peritonsillar Varicella zoster Current Outpatient Medications Medication Sig Dispense Refill albuterol HFA 90 mcg/act inhaler INHALE 2 PUFFS BY MOUTH EVERY 4 HOURS NEEDED 18 g 3 atorvastatin (Lipitor) 20 MG tablet TAKE 1 TABLET DAILY 100 tablet 3 escitalopram (Lexapro) 20 MG tablet TAKE 1 TABLET DAILY 90 tablet 3 fluconazole (Diflucan) 150 MG tablet Take 1 tablet then three days later if still with symptoms take 1 tablet 2 tablet 0 hydroCHLOROthiazide (HYDRODiuril) 25 MG tablet Take 1 tablet (25 mg) by mouth Daily 90 tablet 3 lisinopril 40 MG tablet TAKE 1 TABLET DAILY 100 tablet 3 phentermine (Adipex-P) 37.5 MG tablet Take 1 tablet (37.5 mg) by mouth in the morning. Take before meals. 30 tablet 0 semaglutide (Rybelsus) 14 MG tablet Take 1 tablet (14 mg) by mouth in the morning. Take before meals. 90 tablet 3 No current facility-administered medications for this visit. No Known Allergies Past Surgical History: Procedure Laterality Date ABDOMINAL SURGERY June 2018 CHOLECYSTECTOMY IUD INSERTION 11/06/2014 Mirena PAP SMEAR 01/2017 negative KALYN/HPV NH LAP,CHOLECYSTECTOMY 07/2018 VAGINAL DELIVERY x3 Family History Problem Relation Name Age of Onset Hypertension Mother Laura Diabetes Mother Laura Lymphoma Father Chuy Basal cell carcinoma Father Wisdom Diabetes Father Wisdom Hypertension Father Wisdom Cancer Father Wisdom Heart disease Maternal Grandmother Jolynn Heart failure Maternal Grandmother Jolynn Cancer Paternal Grandmother June female cancer No Known Problems Daughter No Known Problems Daughter No Known Problems Son Social History Tobacco Use Smoking status: Every Day Current packs/day: 1.00 Average packs/day: 1 pack/day for 15.0 years (15.0 ttl pk-yrs) Types: Cigarettes Smokeless tobacco: Never Tobacco comments: quite for 4 years while having children Substance Use Topics Alcohol use: Not Currently Alcohol/week: 1.0 standard drink of alcohol Types: 1 Cans of beer per week Comment: Alcohol: 1 or 2 drinks on typical day/monthly or less. Caffeine: 3-4 cups/day coffee, diet coke Drug use: Never Review of Systems: GENERAL: No weight loss, malaise or fevers. HEENT: Negative for frequent or significant headaches, vision changes, nose bleeds RESPIRATORY: Negative for cough, wheezing or shortness of breath. CARDIOVASCULAR: Negative for chest pain, leg swelling or palpitations. GI: Negative for abdominal discomfort, nausea, vomiting MUSCULOSKELETAL: + Left foot pain SKIN: + for lesions to left plantar foot NEURO: Denies numbess, tingling or burning in feet Physical examination: There were no vitals taken for this visit. On General Observation: Patient is a pleasant, cooperative, well developed 44 y.o. adult female. The patient is alert and oriented to time, place and person. Patient has normal affect and mood. Vascular: DP and PT pulses are palpable. CFT less than 3 seconds to all digits bilateral. Skin temperature is warm to warm from proximal to distal bilateral. No edema noted. No ecchymosis noted. Neuro: Light touch intact bilateral. Dermatological: Skin appears well hydrated and supple. Good color, texture, turgor. No open lesions present. Hyperkeratotic lesion x 4 noted to plantar left foot sub 5th metatarsal base. No thrombosed capillaries or disruption of skin lines noted. There is an a central nucleus noted. Pain with palpation of the lesion. Webspaces clean and dry 1-4. No ecchymosis. No edema noted. Musculoskeletal/Orthopaedic: General foot morphology: +5/5 muscle strength Dorsiflexion, Plantarflexion, Inversion, Eversion . No pain to palpation of peroneal tendons retromalleolar or at 5th metatarsal base insertion. Pain to IPK palpation. Pain to palpation of dorsal 5th metatarsal base as well as laterally. Ankle joint ROM is decreased. Prominent 5th metatarsal styloid process of left foot. Radiographs: 3 views left foot were taken and reviewed. Radiographic impression: Cortical reaction noted to lateral base of 5th metatarsal without over fracture line. No osteolytic or osteoblastic lesions appreciated. No soft tissue gas. No discernible mass noted. Joint spaces are well maintained. Bone density appear typical for age of patient. Assessment: This is a 44 y.o. female patient presenting today with painful porokeratosis sub left 5th metatarsal base and concern for stress reaction of 5th metatarsal Plan: A comprehensive history and physical examination were preformed. The patient was educated on clinical and radiographic findings, diagnosis and treatment plans. Patient state that she understands all that has been explained and all questions were answered to her apparent satisfaction. - Initial office visit - Patient seen and evaluated - IPK x4 pared with 15 blade without incident. Donut offloading pad applied and dispensed with instructions for use. Patient to start home care with use of pumice stone weekly to decrease callus burden. We discussed supportive shoe gear as well as offloading given the bone prominence in this region. We discussed should these be persistent we can use cantharidin as treatment option in the future. -XR of left foot obtained and reviewed. Cortical reaction appreciated to 5th met base laterally in region of pain. We discussed given her activity level and corresponding pain to palpation in this area I am concerned for a stress reaction given XR findings. I dicussed that stress fractures can lag in appearance on XR. -RICE therapy -Ibuprofen as needed for pain -Surgical shoe fit and dispensed with instructions for use Follow up in 2 weeks for repeat XR or sooner if needed Richard Rizo DPM A total of 30 minutes was spent in formulation of this note, review of charts, labs, imaging with a minimum of 50% of the time spent in face to face with with the patient. All questions and concerns were answered to the patients satisfaction. documented in this encounter [facility] 05-30-2024 Telephone encounter Note OARRS reviewed, Rx sent into patient's pharmacy. [facility] 05-30-2024 Miscellaneous Notes OARRS reviewed, Rx sent into patient's pharmacy. documented in this encounter [facility] 05-02-2024 Miscellaneous Notes OARRS reviewed, Rx sent into patient's pharmacy. documented in this encounter [facility] 05-02-2024 Telephone encounter Note OARRS reviewed, Rx sent into patient's pharmacy. [facility] 03-26-2024 History of Present illness Narrative Associated Problem(s): Metabolic syndrome Needs life style modification. Exercise Routinely Low Calorie Diet F/U in 2 weeks 3500 calorie deficit = 1lb weight loss Small portions TIming of meals Reduce Carbohydrate Intake High Protein Diet Associated Problem(s): Dizziness Will stop the Jardiance Consider stopping the hydrochlorothiazide Consider SubClavian Leon Associated Problem(s): Benign essential hypertension (CMS/HCC) Our specific goals, for your hypertension, is to keep your blood pressure less than 140/90, and the importance of weight control. We made recommendations on how to control your blood pressure, and minimize your risk of these copmplications. We also discussed your current barriers to a healthy living and importance of healthy diet and exercise. Prior to your visit today we have reviewed your chart and formed a plan to assist with providing you the best possible care. We reviewed the possible complications of hypertension including, stroke, heart failure and kidney impairment. In addition, we discussed your medications, the importance of taking them as prescribed. DASH diet handouts Images from the original note were not included. Subjective Patient ID: Millicent Arreola is a 43 y.o. female who presents for Weight Check. Millicent is here today for a weight check. She started Adipex on 05/23/23. Weight 05/23/23 - 291 Today wt. 233lb Pt has not been feeling good the past two months weak, lightheaded,dizzy, been having yeast infection on her third one (pt is taking probiotic ), has a small bump on her right arm When she was dizzy she did check her sugar it was good along with the BP was good Pt states when she is dizzy is when she has her hands up for too long and also when she bends over for too long Sugars 135 BP 117/60 something Current Outpatient Medications on File Prior to Visit Medication Sig Dispense Refill albuterol HFA 90 mcg/act inhaler INHALE 2 PUFFS BY MOUTH EVERY 4 HOURS NEEDED 8 g 6 atorvastatin (Lipitor) 20 MG tablet TAKE 1 TABLET DAILY 100 tablet 3 escitalopram (Lexapro) 20 MG tablet TAKE 1 TABLET DAILY 90 tablet 3 fluconazole (Diflucan) 150 MG tablet Take 1 tablet then three days later if still with symptoms take 1 tablet 2 tablet 0 hydroCHLOROthiazide (HYDRODiuril) 25 MG tablet Take 1 tablet (25 mg) by mouth Daily 90 tablet 3 lisinopril 40 MG tablet Take 1 tablet (40 mg) by mouth Daily 90 tablet 0 phentermine (Adipex-P) 37.5 MG tablet Take 1 tablet (37.5 mg) by mouth in the morning. Take before meals. 30 tablet 0 semaglutide (Rybelsus) 14 MG tablet Take 1 tablet (14 mg) by mouth in the morning. Take before meals. 90 tablet 3 [DISCONTINUED] empagliflozin (Jardiance) 25 MG Take 1 tablet (25 mg) by mouth Daily 100 tablet 3 No current facility-administered medications on file prior to visit. I have reviewed and reconciled the history and medication list with the patient today. No Known Allergies Social History Tobacco Use Smoking status: Every Day Current packs/day: 1.00 Average packs/day: 1 pack/day for 15.0 years (15.0 ttl pk-yrs) Types: Cigarettes Smokeless tobacco: Never Tobacco comments: quite for 4 years while having children Substance Use Topics Alcohol use: Not Currently Alcohol/week: 1.0 standard drink of alcohol Types: 1 Cans of beer per week Comment: Alcohol: 1 or 2 drinks on typical day/monthly or less. Caffeine: 3-4 cups/day coffee, diet coke Drug use: Never Family History Problem Relation Name Age of Onset Hypertension Mother Laura Diabetes Mother Laura Lymphoma Father Wisdom Basal cell carcinoma Father Wisdom Diabetes Father Wisdom Hypertension Father Chuy Cancer Father Wisdom Heart disease Maternal Grandmother Jolynn Heart failure Maternal Grandmother Jolynn Cancer Paternal Grandmother June female cancer No Known Problems Daughter No Known Problems Daughter No Known Problems Son Past Medical History: Diagnosis Date Allergic Anemia Asthma (CMS/HCC) Depression (CMS/HCC) Dysmenorrhea Gestational diabetes Headache Hypertension (CMS/HCC) May 2023 Nephrolithiasis Obesity Tonsillar abscess 08/2013 Peritonsillar Varicella zoster Past Surgical History: Procedure Laterality Date ABDOMINAL SURGERY June 2018 CHOLECYSTECTOMY IUD INSERTION 11/06/2014 Mirena PAP SMEAR 01/2017 negative KALYN/HPV [place] LAP,CHOLECYSTECTOMY 07/2018 VAGINAL DELIVERY x3 Visit Vitals BP 124/88 Pulse (!) 121 Ht 5' 2 Wt 233 lb SpO2 97% BMI 42.62 kg/m OB Status Having periods Smoking Status Every Day BSA 2.15 m Review of Systems Constitutional: Negative for chills, fatigue and fever. Respiratory: Negative for shortness of breath. Cardiovascular: Negative for chest pain and palpitations. Neurological: Positive for dizziness. Negative for tremors and speech difficulty. Psychiatric/Behavioral: Positive for decreased concentration. Negative for confusion and dysphoric mood. The patient is not nervous/anxious. Objective Physical Exam Constitutional: General: She is not in acute distress. Appearance: Normal appearance. HENT: Head: Normocephalic. Neck: Vascular: No carotid bruit. Cardiovascular: Rate and Rhythm: Normal rate and regular rhythm. Pulmonary: Effort: Pulmonary effort is normal. No respiratory distress. Breath sounds: Normal breath sounds. Neurological: General: No focal deficit present. Mental Status: She is alert and oriented to person, place, and time. Psychiatric: Mood and Affect: Mood normal. Assessment/Plan Problem List Items Addressed This Visit Metabolic syndrome Needs life style modification. Exercise Routinely Low Calorie Diet F/U in 2 weeks 3500 calorie deficit = 1lb weight loss Small portions TIming of meals Reduce Carbohydrate Intake High Protein Diet Benign essential hypertension (CMS/HCC) Our specific goals, for your hypertension, is to keep your blood pressure less than 140/90, and the importance of weight control. We made recommendations on how to control your blood pressure, and minimize your risk of these copmplications. We also discussed your current barriers to a healthy living and importance of healthy diet and exercise. Prior to your visit today we have reviewed your chart and formed a plan to assist with providing you the best possible care. We reviewed the possible complications of hypertension including, stroke, heart failure and kidney impairment. In addition, we discussed your medications, the importance of taking them as prescribed. DASH diet handouts Dizziness - Primary Will stop the Jardiance Consider stopping the hydrochlorothiazide Consider SubClavian Leon Follow up in about 3 months (around 06/26/2024). documented in this encounter [facility] 03-05-2024 Telephone encounter Note OARRS reviewed, Rx sent into patient's pharmacy. [facility] 03-05-2024 Miscellaneous Notes OARRS reviewed, Rx sent into patient's pharmacy. Needs Adipex--[facility] documented in this encounter [facility] 03-05-2024 Telephone encounter Note Needs Adipex--[facility]othiazide--- [facility] Evaluation note No assessment inform ation available [facility] Work Phone: Evaluation note Diagnosis Dizziness- Primary Dizziness and giddiness Benign essential hypertension (CMS/HCC) Essential hypertension, benign Metabolic syndrome Dysmetabolic Syndrome X [facility] Diagnosis Uncontrolled diabetes mellitus with hyperglycemia, without long-term current use of insulin (CMS/HCC) Morbid obesity (CMS/HCC) Morbid obesity documented in this encounter [facility]* Diagnosis Uncontrolled diabetes mellitus with hyperglycemia, without long-term current use of insulin (CMS/HCC)- Primary Type 2 diabetes mellitus with other specified complication, without long-term current use of insulin (CMS/HCC) Primary hypertension (CMS/HCC) Unspecified essential hypertension Morbid obesity (CMS/HCC) Morbid obesity Morbid obesity (CMS/HCC)- Primary Morbid obesity Encounter for screening mammogram for malignant neoplasm of breast Uncontrolled diabetes mellitus with hyperglycemia, without long-term current use of insulin (CMS/HCC) Morbid obesity (CMS/HCC) Morbid obesity Upper respiratory tract infection, unspecified type- Primary Type 2 diabetes mellitus with other specified complication, without long-term current use of insulin (CMS/HCC) Primary hypertension (CMS/HCC) Unspecified essential hypertension Uncontrolled diabetes mellitus with hyperglycemia, without long-term current use of insulin (CMS/HCC) Morbid obesity (CMS/HCC) Morbid obesity Type 2 diabetes mellitus with hyperglycemia, without long-term current use of insulin (CMS/HCC) Morbid (severe) obesity due to excess calories (E66.01) Body mass index [BMI] 50.0-59.9, adult (Z68.43) Uncontrolled diabetes mellitus with hyperglycemia, without long-term current use of insulin (CMS/HCC) Morbid obesity (CMS/HCC) Morbid obesity Abnormal glucose tolerance test Impaired glucose tolerance test Benign essential hypertension (CMS/HCC) Essential hypertension, benign Annual physical exam Routine general medical examination at a health care facility Screening for lipid disorders Dizziness- Primary Dizziness and giddiness Benign essential hypertension (CMS/HCC) Essential hypertension, benign Metabolic syndrome Dysmetabolic Syndrome X Uncontrolled diabetes mellitus with hyperglycemia, without long-term current use of insulin (CMS/HCC) Morbid obesity (CMS/HCC) Morbid obesity documented in this encounter [facility]* Diagnosis Uncontrolled diabetes mellitus with hyperglycemia, without long-term current use of insulin (CMS/HCC)- Primary Type 2 diabetes mellitus with other specified complication, without long-term current use of insulin (CMS/HCC) Primary hypertension (CMS/HCC) Unspecified essential hypertension Morbid obesity (CMS/HCC) Morbid obesity Morbid obesity (CMS/HCC)- Primary Morbid obesity Encounter for screening mammogram for malignant neoplasm of breast Uncontrolled diabetes mellitus with hyperglycemia, without long-term current use of insulin (CMS/HCC) Morbid obesity (CMS/HCC) Morbid obesity Upper respiratory tract infection, unspecified type- Primary Type 2 diabetes mellitus with other specified complication, without long-term current use of insulin (CMS/HCC) Primary hypertension (CMS/HCC) Unspecified essential hypertension Uncontrolled diabetes mellitus with hyperglycemia, without long-term current use of insulin (CMS/HCC) Morbid obesity (CMS/HCC) Morbid obesity Type 2 diabetes mellitus with hyperglycemia, without long-term current use of insulin (CMS/HCC) Morbid (severe) obesity due to excess calories (E66.01) Body mass index [BMI] 50.0-59.9, adult (Z68.43) Uncontrolled diabetes mellitus with hyperglycemia, without long-term current use of insulin (CMS/HCC) Morbid obesity (CMS/HCC) Morbid obesity Abnormal glucose tolerance test Impaired glucose tolerance test Benign essential hypertension (CMS/HCC) Essential hypertension, benign Annual physical exam Routine general medical examination at a [facility] facility Screening for lipid disorders Dizziness- Primary Dizziness and giddiness Benign essential hypertension (CMS/HCC) Essential hypertension, benign Metabolic syndrome Dysmetabolic Syndrome X Uncontrolled diabetes mellitus with hyperglycemia, without long-term current use of insulin (CMS/HCC) Morbid obesity (CMS/HCC) Morbid obesity [facility] Diagnosis Uncontrolled diabetes mellitus with hyperglycemia, without long-term current use of insulin (CMS/HCC) Morbid obesity (CMS/HCC) Morbid obesity Benign essential hypertension (CMS/HCC) Essential hypertension, benign [facility]* Diagnosis Uncontrolled diabetes mellitus with hyperglycemia, without long-term current use of insulin (CMS/HCC)- Primary Type 2 diabetes mellitus with other specified complication, without long-term current use of insulin (CMS/HCC) Primary hypertension (CMS/HCC) Unspecified essential hypertension Morbid obesity (CMS/HCC) Morbid obesity Morbid obesity (CMS/HCC)- Primary Morbid obesity Encounter for screening mammogram for malignant neoplasm of breast Uncontrolled diabetes mellitus with hyperglycemia, without long-term current use of insulin (CMS/HCC) Morbid obesity (CMS/HCC) Morbid obesity Upper respiratory tract infection, unspecified type- Primary Type 2 diabetes mellitus with other specified complication, without long-term current use of insulin (CMS/HCC) Primary hypertension (CMS/HCC) Unspecified essential hypertension Uncontrolled diabetes mellitus with hyperglycemia, without long-term current use of insulin (CMS/HCC) Morbid obesity (CMS/HCC) Morbid obesity Type 2 diabetes mellitus with hyperglycemia, without long-term current use of insulin (CMS/HCC) Morbid (severe) obesity due to excess calories (E66.01) Body mass index [BMI] 50.0-59.9, adult (Z68.43) Uncontrolled diabetes mellitus with hyperglycemia, without long-term current use of insulin (CMS/HCC) Morbid obesity (CMS/HCC) Morbid obesity Abnormal glucose tolerance test Impaired glucose tolerance test Benign essential hypertension (CMS/HCC) Essential hypertension, benign Annual physical exam Routine general medical examination at a health care facility Screening for lipid disorders Dizziness- Primary Dizziness and giddiness Benign essential hypertension (CMS/HCC) Essential hypertension, benign Metabolic syndrome Dysmetabolic Syndrome X Left foot pain- Primary Pain in soft tissues of limb Stress reaction of bone Stress fracture of other bone Porokeratosis Other specified congenital anomaly of skin [facility] Diagnosis Uncontrolled diabetes mellitus with hyperglycemia, without long-term current use of insulin (CMS/HCC)- Primary Type 2 diabetes mellitus with other specified complication, without long-term current use of insulin (CMS/HCC) Primary hypertension (CMS/HCC) Unspecified essential hypertension Morbid obesity (CMS/HCC) Morbid obesity Morbid obesity (CMS/HCC)- Primary Morbid obesity Encounter for screening mammogram for malignant neoplasm of breast Uncontrolled diabetes mellitus with hyperglycemia, without long-term current use of insulin (CMS/HCC) Morbid obesity (CMS/HCC) Morbid obesity Upper respiratory tract infection, unspecified type- Primary Type 2 diabetes mellitus with other specified complication, without long-term current use of insulin (CMS/HCC) Primary hypertension (CMS/HCC) Unspecified essential hypertension Uncontrolled diabetes mellitus with hyperglycemia, without long-term current use of insulin (CMS/HCC) Morbid obesity (CMS/HCC) Morbid obesity Type 2 diabetes mellitus with hyperglycemia, without long-term current use of insulin (CMS/HCC) Morbid (severe) obesity due to excess calories (E66.01) Body mass index [BMI] 50.0-59.9, adult (Z68.43) Uncontrolled diabetes mellitus with hyperglycemia, without long-term current use of insulin (CMS/HCC) Morbid obesity (CMS/HCC) Morbid obesity Abnormal glucose tolerance test Impaired glucose tolerance test Benign essential hypertension (CMS/HCC) Essential hypertension, benign Annual physical exam Routine general medical examination at a health care facility Screening for lipid disorders Dizziness- Primary Dizziness and giddiness Benign essential hypertension (CMS/HCC) Essential hypertension, benign Metabolic syndrome Dysmetabolic Syndrome X Stress reaction of bone- Primary Stress fracture of other bone documented in this encounter [facility]* Diagnosis Uncontrolled diabetes mellitus with hyperglycemia, without long-term current use of insulin (CMS/HCC)- Primary Type 2 diabetes mellitus with other specified complication, without long-term current use of insulin (CMS/HCC) Primary hypertension (CMS/HCC) Unspecified essential hypertension Morbid obesity (CMS/HCC) Morbid obesity Morbid obesity (CMS/HCC)- Primary Morbid obesity Encounter for screening mammogram for malignant neoplasm of breast Uncontrolled diabetes mellitus with hyperglycemia, without long-term current use of insulin (CMS/HCC) Morbid obesity (CMS/HCC) Morbid obesity Upper respiratory tract infection, unspecified type- Primary Type 2 diabetes mellitus with other specified complication, without long-term current use of insulin (CMS/HCC) Primary hypertension (CMS/HCC) Unspecified essential hypertension Uncontrolled diabetes mellitus with hyperglycemia, without long-term current use of insulin (CMS/HCC) Morbid obesity (CMS/HCC) Morbid obesity Type 2 diabetes mellitus with hyperglycemia, without long-term current use of insulin (CMS/HCC) Morbid (severe) obesity due to excess calories (E66.01) Body mass index [BMI] 50.0-59.9, adult (Z68.43) Uncontrolled diabetes mellitus with hyperglycemia, without long-term current use of insulin (CMS/HCC) Morbid obesity (CMS/HCC) Morbid obesity Abnormal glucose tolerance test Impaired glucose tolerance test Benign essential hypertension (CMS/HCC) Essential hypertension, benign Annual physical exam Routine general medical examination at a health care facility Screening for lipid disorders Dizziness- Primary Dizziness and giddiness Benign essential hypertension (CMS/HCC) Essential hypertension, benign Metabolic syndrome Dysmetabolic Syndrome X Moderate persistent asthma with acute exacerbation (CMS/[facility])- Primary Chronic rhinitis documented in this encounter [facility]* Diagnosis Uncontrolled diabetes mellitus with hyperglycemia, without long-term current use of insulin (CMS/[facility])- Primary Type 2 diabetes mellitus with other specified complication, without long-term current use of insulin (CMS/HCC) Primary hypertension (CMS/HCC) Unspecified essential hypertension Morbid obesity (CMS/HCC) Morbid obesity Morbid obesity (CMS/HCC)- Primary Morbid obesity Encounter for screening mammogram for malignant neoplasm of breast Uncontrolled diabetes mellitus with hyperglycemia, without long-term current use of insulin (CMS/HCC) Morbid obesity (CMS/HCC) Morbid obesity Upper respiratory tract infection, unspecified type- Primary Type 2 diabetes mellitus with other specified complication, without long-term current use of insulin (CMS/HCC) Primary hypertension (CMS/HCC) Unspecified essential hypertension Uncontrolled diabetes mellitus with hyperglycemia, without long-term current use of insulin (CMS/HCC) Morbid obesity (CMS/HCC) Morbid obesity Type 2 diabetes mellitus with hyperglycemia, without long-term current use of insulin (CMS/HCC) Morbid (severe) obesity due to excess calories (E66.01) Body mass index [BMI] 50.0-59.9, adult (Z68.43) Uncontrolled diabetes mellitus with hyperglycemia, without long-term current use of insulin (CMS/HCC) Morbid obesity (CMS/HCC) Morbid obesity Abnormal glucose tolerance test Impaired glucose tolerance test Benign essential hypertension (CMS/HCC) Essential hypertension, benign Annual physical exam Routine general medical examination at a [facility] facility Screening for lipid disorders Dizziness- Primary Dizziness and giddiness Benign essential hypertension (CMS/HCC) Essential hypertension, benign Metabolic syndrome Dysmetabolic Syndrome X Uncontrolled diabetes mellitus with hyperglycemia, without long-term current use of insulin (CMS/HCC) Morbid obesity (CMS/HCC) Morbid obesity Well woman exam with routine gynecological exam Routine gynecological examination Other screening mammogram Intrauterine device surveillance documented [facility] Diagnosis Uncontrolled diabetes mellitus with hyperglycemia, without long-term current use of insulin (CMS/HCC)- Primary Type 2 diabetes mellitus with other specified complication, without long-term current use of insulin (CMS/HCC) Primary hypertension (CMS/HCC) Unspecified essential hypertension Morbid obesity (CMS/HCC) Morbid obesity Morbid obesity (CMS/HCC)- Primary Morbid obesity Encounter for screening mammogram for malignant neoplasm of breast Uncontrolled diabetes mellitus with hyperglycemia, without long-term current use of insulin (CMS/HCC) Morbid obesity (CMS/HCC) Morbid obesity Upper respiratory tract infection, unspecified type- Primary Type 2 diabetes mellitus with other specified complication, without long-term current use of insulin (CMS/HCC) Primary hypertension (CMS/HCC) Unspecified essential hypertension Uncontrolled diabetes mellitus with hyperglycemia, without long-term current use of insulin (CMS/HCC) Morbid obesity (CMS/HCC) Morbid obesity Type 2 diabetes mellitus with hyperglycemia, without long-term current use of insulin (CMS/HCC) Morbid (severe) obesity due to excess calories (E66.01) Body mass index [BMI] 50.0-59.9, adult (Z68.43) Uncontrolled diabetes mellitus with hyperglycemia, without long-term current use of insulin (CMS/HCC) Morbid obesity (CMS/HCC) Morbid obesity Abnormal glucose tolerance test Impaired glucose tolerance test Benign essential hypertension (CMS/HCC) Essential hypertension, benign Annual physical exam Routine general medical examination at a health care facility Screening for lipid disorders Dizziness- Primary Dizziness and giddiness Benign essential hypertension (CMS/HCC) Essential hypertension, benign Metabolic syndrome Dysmetabolic Syndrome X Well woman exam with routine gynecological exam- Primary Routine gynecological examination Other screening mammogram Intrauterine device surveillance Vaginal infection Unspecified vaginitis and vulvovaginitis documented in this [facility]* Diagnosis Uncontrolled diabetes mellitus with hyperglycemia, without long-term current use of insulin (CMS/HCC)- Primary Type 2 diabetes mellitus with other specified complication, without long-term current use of insulin (CMS/HCC) Primary hypertension (CMS/HCC) Unspecified essential hypertension Morbid obesity (CMS/HCC) Morbid obesity Morbid obesity (CMS/HCC)- Primary Morbid obesity Encounter for screening mammogram for malignant neoplasm of breast Uncontrolled diabetes mellitus with hyperglycemia, without long-term current use of insulin (CMS/HCC) Morbid obesity (CMS/HCC) Morbid obesity Upper respiratory tract infection, unspecified type- Primary Type 2 diabetes mellitus with other specified complication, without long-term current use of insulin (CMS/HCC) Primary hypertension (CMS/HCC) Unspecified essential hypertension Uncontrolled diabetes mellitus with hyperglycemia, without long-term current use of insulin (CMS/HCC) Morbid obesity (CMS/HCC) Morbid obesity Type 2 diabetes mellitus with hyperglycemia, without long-term current use of insulin (CMS/HCC) Morbid (severe) obesity due to excess calories (E66.01) Body mass index [BMI] 50.0-59.9, adult (Z68.43) Uncontrolled diabetes mellitus with hyperglycemia, without long-term current use of insulin (CMS/HCC) Morbid obesity (CMS/HCC) Morbid obesity Abnormal glucose tolerance test Impaired glucose tolerance test Benign essential hypertension (CMS/HCC) Essential hypertension, benign Annual physical exam Routine general medical examination at a health care facility Screening for lipid disorders Dizziness- Primary Dizziness and giddiness Benign essential hypertension (CMS/HCC) Essential hypertension, benign Metabolic syndrome Dysmetabolic Syndrome X Benign essential hypertension (CMS/HCC)- Primary Essential hypertension, benign Uncontrolled diabetes mellitus with hyperglycemia, without long-term current use of insulin (CMS/HCC) Severe persistent asthma, uncomplicated (CMS/HCC) 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) Type 2 diabetes mellitus with other specified complication (CMS/HCC) Hyperlipidemia, unspecified (CMS/HCC) Slow transit constipation Morbid obesity (CMS/HCC) Morbid obesity documented in [facility]* Diagnosis Uncontrolled diabetes mellitus with hyperglycemia, without long-term current use of insulin (CMS/[facility])- Primary Type 2 diabetes mellitus with other specified complication, without long-term current use of insulin (CMS/[facility]) Primary hypertension (CMS/[facility]) Unspecified essential hypertension Morbid obesity (CMS/[facility]) Morbid obesity Morbid obesity ([facility]/HCC)- Primary Morbid obesity Encounter for screening mammogram for malignant neoplasm of breast Uncontrolled diabetes mellitus with hyperglycemia, without long-term current use of insulin (CMS/[facility]) Morbid obesity (CMS/[facility]) Morbid obesity Upper respiratory tract infection, unspecified type- Primary Type 2 diabetes mellitus with other specified complication, without long-term current use of insulin (CMS/[facility]) Primary hypertension (CMS/[facility]) Unspecified essential hypertension Uncontrolled diabetes mellitus with hyperglycemia, without long-term current use of insulin (CMS/HCC) Morbid obesity (CMS/HCC) Morbid obesity Type 2 diabetes mellitus with hyperglycemia, without long-term current use of insulin ([facility]/HCC) Morbid (severe) obesity due to excess calories (E66.01) Body mass index [BMI] 50.0-59.9, adult (Z68.43) Uncontrolled diabetes mellitus with hyperglycemia, without long-term current use of insulin (CMS/HCC) Morbid obesity (CMS/HCC) Morbid obesity Abnormal glucose tolerance test Impaired glucose tolerance test Benign essential hypertension (CMS/HCC) Essential hypertension, benign Annual physical exam Routine general medical examination at a health care facility Screening for lipid disorders Dizziness- Primary Dizziness and giddiness Benign essential hypertension (CMS/HCC) Essential hypertension, benign Metabolic syndrome Dysmetabolic Syndrome X Benign essential hypertension (CMS/HCC)- Primary Essential hypertension, benign Uncontrolled diabetes mellitus with hyperglycemia, without long-term current use of insulin (CMS/HCC) Severe persistent asthma, uncomplicated (CMS/HCC) 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) Type 2 diabetes mellitus with other specified complication (CMS/HCC) Hyperlipidemia, unspecified (CMS/HCC) Slow transit constipation Morbid obesity (CMS/HCC) Morbid obesity Viral gastroenteritis- Primary Intestinal infection due to other organism, NEC documented in this encounter [facility]* Diagnosis Uncontrolled diabetes mellitus with hyperglycemia, without long-term current use of insulin (CMS/HCC)- Primary Type 2 diabetes mellitus with other specified complication, without long-term current use of insulin (CMS/HCC) Primary hypertension (CMS/HCC) Unspecified essential hypertension Morbid obesity (CMS/HCC) Morbid obesity Morbid obesity (CMS/HCC)- Primary Morbid obesity Encounter for screening mammogram for malignant neoplasm of breast Uncontrolled diabetes mellitus with hyperglycemia, without long-term current use of insulin (CMS/HCC) Morbid obesity (CMS/HCC) Morbid obesity Upper respiratory tract infection, unspecified type- Primary Type 2 diabetes mellitus with other specified complication, without long-term current use of insulin (CMS/HCC) Primary hypertension (CMS/HCC) Unspecified essential hypertension Uncontrolled diabetes mellitus with hyperglycemia, without long-term current use of insulin (CMS/HCC) Morbid obesity (CMS/HCC) Morbid obesity Type 2 diabetes mellitus with hyperglycemia, without long-term current use of insulin (CMS/HCC) Morbid (severe) obesity due to excess calories (E66.01) Body mass index [BMI] 50.0-59.9, adult (Z68.43) Uncontrolled diabetes mellitus with hyperglycemia, without long-term current use of insulin (CMS/HCC) Morbid obesity (CMS/HCC) Morbid obesity Abnormal glucose tolerance test Impaired glucose tolerance test Benign essential hypertension (CMS/HCC) Essential hypertension, benign Annual physical exam Routine general medical examination at a health care facility Screening for lipid disorders Dizziness- Primary Dizziness and giddiness Benign essential hypertension (CMS/HCC) Essential hypertension, benign Metabolic syndrome Dysmetabolic Syndrome X Benign essential hypertension (CMS/HCC)- Primary Essential hypertension, benign Uncontrolled diabetes mellitus with hyperglycemia, without long-term current use of insulin (CMS/HCC) Severe persistent asthma, uncomplicated (CMS/HCC) 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) Type 2 diabetes mellitus with other specified complication (CMS/HCC) Hyperlipidemia, unspecified (CMS/HCC) Slow transit constipation Morbid obesity (CMS/HCC) Morbid obesity Stress reaction of bone- Primary Stress fracture of other bone documented in this encounter [facility]* Diagnosis Uncontrolled diabetes mellitus with hyperglycemia, without long-term current use of insulin (CMS/HCC)- Primary Type 2 diabetes mellitus with other specified complication, without long-term current use of insulin (CMS/HCC) Primary hypertension (CMS/HCC) Unspecified essential hypertension Morbid obesity (CMS/HCC) Morbid obesity Morbid obesity (CMS/HCC)- Primary Morbid obesity Encounter for screening mammogram for malignant neoplasm of breast Uncontrolled diabetes mellitus with hyperglycemia, without long-term current use of insulin (CMS/HCC) Morbid obesity (CMS/HCC) Morbid obesity Upper respiratory tract infection, unspecified type- Primary Type 2 diabetes mellitus with other specified complication, without long-term current use of insulin (CMS/[facility]) Primary hypertension (CMS/HCC) Unspecified essential hypertension Uncontrolled diabetes mellitus with hyperglycemia, without long-term current use of insulin (CMS/HCC) Morbid obesity (CMS/[facility]) Morbid obesity Type 2 diabetes mellitus with hyperglycemia, without long-term current use of insulin (CMS/HCC) Morbid (severe) obesity due to excess calories (E66.01) Body mass index [BMI] 50.0-59.9, adult (Z68.43) Uncontrolled diabetes mellitus with hyperglycemia, without long-term current use of insulin (CMS/HCC) Morbid obesity (CMS/HCC) Morbid obesity Abnormal glucose tolerance test Impaired glucose tolerance test Benign essential hypertension (CMS/HCC) Essential hypertension, benign Annual physical exam Routine general medical examination at a health care facility Screening for lipid disorders Dizziness- Primary Dizziness and giddiness Benign essential hypertension (CMS/HCC) Essential hypertension, benign Metabolic syndrome Dysmetabolic Syndrome X Benign essential hypertension (CMS/HCC)- Primary Essential hypertension, benign Uncontrolled diabetes mellitus with hyperglycemia, without long-term current use of insulin (CMS/HCC) Severe persistent asthma, uncomplicated (CMS/[facility]) Type 2 diabetes mellitus with diabetic nephropathy (CMS/[facility]) Type 2 diabetes mellitus with other specified complication (CMS/HCC) Hyperlipidemia, unspecified (CMS/HCC) Slow transit constipation Morbid obesity (CMS/HCC) Morbid obesity Uncontrolled diabetes mellitus with hyperglycemia, without long-term current use of insulin (CMS/HCC) Morbid obesity (CMS/HCC) Morbid obesity documented in this encounter [facility]* Diagnosis Uncontrolled diabetes mellitus with hyperglycemia, without long-term current use of insulin ([facility])- Primary Type 2 diabetes mellitus with other specified complication, without long-term current use of insulin ([facility]) Primary hypertension ([facility]) Unspecified essential hypertension Morbid obesity (CMS/HCC) Morbid obesity Morbid obesity (CMS/HCC)- Primary Morbid obesity Encounter for screening mammogram for malignant neoplasm of breast Uncontrolled diabetes mellitus with hyperglycemia, without long-term current use of insulin ([facility]) Morbid obesity (CMS/HCC) Morbid obesity Upper respiratory tract infection, unspecified type- Primary Type 2 diabetes mellitus with other specified complication, without long-term current use of insulin ([facility]) Primary hypertension (CMS/[facility]) Unspecified essential hypertension Uncontrolled diabetes mellitus with hyperglycemia, without long-term current use of insulin ([facility]) Morbid obesity ([facility]) Morbid obesity Type 2 diabetes mellitus with hyperglycemia, without long-term current use of insulin ([facility]) Morbid (severe) obesity due to excess calories (E66.01) Body mass index [BMI] 50.0-59.9, adult (Z68.43) Uncontrolled diabetes mellitus with hyperglycemia, without long-term current use of insulin ([facility]) Morbid obesity ([facility]) Morbid obesity Abnormal glucose tolerance test Impaired glucose tolerance test Benign essential hypertension ([facility]) Essential hypertension, benign Annual physical exam Routine general medical examination at a health care facility Screening for lipid disorders Dizziness- Primary Dizziness and giddiness Benign essential hypertension (CMS/[facility]) Essential hypertension, benign Metabolic syndrome Dysmetabolic Syndrome X Benign essential hypertension ([facility])- Primary Essential hypertension, benign Uncontrolled diabetes mellitus with hyperglycemia, without long-term current use of insulin ([facility]) Severe persistent asthma, uncomplicated (CMS/[facility]) Type 2 diabetes mellitus with diabetic nephropathy (CMS/[facility]) Type 2 diabetes mellitus with other specified complication ([facility]/HCC) Hyperlipidemia, unspecified (CMS/[facility]) Slow transit constipation Morbid obesity ([facility]/HCC) Morbid obesity Encounter for IUD removal and reinsertion documented in [facility]* Diagnosis Uncontrolled diabetes mellitus with hyperglycemia, without long-term current use of insulin ([facility])- Primary Type 2 diabetes mellitus with other specified complication, without long-term current use of insulin Primary hypertension (CMS/HCC) Unspecified essential hypertension Morbid obesity (CMS/HCC) Morbid obesity Morbid obesity (CMS/HCC)- Primary Morbid obesity Encounter for screening mammogram for malignant neoplasm of breast Uncontrolled diabetes mellitus with hyperglycemia, without long-term current use of insulin (CMS/HCC) Morbid obesity (CMS/HCC) Morbid obesity Upper respiratory tract infection, unspecified type- Primary Type 2 diabetes mellitus with other specified complication, without long-term current use of insulin Primary hypertension (CMS/HCC) Unspecified essential hypertension Uncontrolled diabetes mellitus with hyperglycemia, without long-term current use of insulin (CMS/HCC) Morbid obesity (CMS/HCC) Morbid obesity Type 2 diabetes mellitus with hyperglycemia, without long-term current use of insulin (CMS/HCC) Morbid (severe) obesity due to excess calories (E66.01) Body mass index [BMI] 50.0-59.9, adult (Z68.43) Uncontrolled diabetes mellitus with hyperglycemia, without long-term current use of insulin (CMS/HCC) Morbid obesity (CMS/HCC) Morbid obesity Abnormal glucose tolerance test Impaired glucose tolerance test Benign essential hypertension (CMS/HCC) Essential hypertension, benign Annual physical exam Routine general medical examination at a health care facility Screening for lipid disorders Dizziness- Primary Dizziness and giddiness Benign essential hypertension (CMS/HCC) Essential hypertension, benign Metabolic syndrome Dysmetabolic Syndrome X Benign essential hypertension (CMS/HCC)- Primary Essential hypertension, benign Uncontrolled diabetes mellitus with hyperglycemia, without long-term current use of insulin (CMS/HCC) Severe persistent asthma, uncomplicated (CMS/HCC) 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) Type 2 diabetes mellitus with other specified complication Hyperlipidemia, unspecified (CMS/HCC) Slow transit constipation Morbid obesity (CMS/HCC) Morbid obesity Uncontrolled diabetes mellitus with hyperglycemia, without long-term current use of insulin (CMS/HCC) Morbid obesity (CMS/HCC) Morbid obesity documented in this encounter [facility]* Diagnosis Uncontrolled diabetes mellitus with hyperglycemia, without long-term current use of insulin (HCC)- Primary Type 2 diabetes mellitus with other specified complication, without long-term current use of insulin (HCC) Primary hypertension Unspecified essential hypertension Morbid obesity (CMS-HCC) Morbid obesity Morbid obesity (CMS-HCC)- Primary Morbid obesity Encounter for screening mammogram for malignant neoplasm of breast Uncontrolled diabetes mellitus with hyperglycemia, without long-term current use of insulin (HCC) Morbid obesity (CMS-HCC) Morbid obesity Upper respiratory tract infection, unspecified type- Primary Type 2 diabetes mellitus with other specified complication, without long-term current use of insulin (HCC) Primary hypertension Unspecified essential hypertension Uncontrolled diabetes mellitus with hyperglycemia, without long-term current use of insulin (HCC) Morbid obesity (CMS-HCC) Morbid obesity Type 2 diabetes mellitus with hyperglycemia, without long-term current use of insulin (HCC) Morbid (severe) obesity due to excess calories (E66.01) Body mass index [BMI] 50.0-59.9, adult (Z68.43) Uncontrolled diabetes mellitus with hyperglycemia, without long-term current use of insulin (HCC) Morbid obesity (CMS-HCC) Morbid obesity Abnormal glucose tolerance test Impaired glucose tolerance test Benign essential hypertension Essential hypertension, benign Annual physical exam Routine general medical examination at a health care facility Screening for lipid disorders Dizziness- Primary Dizziness and giddiness Benign essential hypertension Essential hypertension, benign Metabolic syndrome Dysmetabolic Syndrome X Benign essential hypertension- Primary Essential hypertension, benign Uncontrolled diabetes mellitus with hyperglycemia, without long-term current use of insulin (HCC) Severe persistent asthma, uncomplicated (HCC) Type 2 diabetes mellitus with diabetic nephropathy (HCC) Type 2 diabetes mellitus with other specified complication (HCC) Hyperlipidemia, unspecified Slow transit constipation Morbid obesity ([facility]-HCC) Morbid obesity Uncontrolled diabetes mellitus with hyperglycemia, without long-term current use of insulin (HCC) Morbid obesity ([facility]-HCC) Morbid obesity documented in this encounter [facility]* Diagnosis Uncontrolled diabetes mellitus with hyperglycemia, without long-term current use of insulin (HCC)- Primary Type 2 diabetes mellitus with other specified complication, without long-term current use of insulin (HCC) Primary hypertension Unspecified essential hypertension Morbid obesity ([facility]-HCC) Morbid obesity Morbid obesity ([facility]-HCC)- Primary Morbid obesity Encounter for screening mammogram for malignant neoplasm of breast Uncontrolled diabetes mellitus with hyperglycemia, without long-term current use of insulin (HCC) Morbid obesity ([facility]-HCC) Morbid obesity Upper respiratory tract infection, unspecified type- Primary Type 2 diabetes mellitus with other specified complication, without long-term current use of insulin (HCC) Primary hypertension Unspecified essential hypertension Uncontrolled diabetes mellitus with hyperglycemia, without long-term current use of insulin (HCC) Morbid obesity (CMS-HCC) Morbid obesity Type 2 diabetes mellitus with hyperglycemia, without long-term current use of insulin (HCC) Morbid (severe) obesity due to excess calories (E66.01) Body mass index [BMI] 50.0-59.9, adult (Z68.43) Uncontrolled diabetes mellitus with hyperglycemia, without long-term current use of insulin (HCC) Morbid obesity (CMS-HCC) Morbid obesity Abnormal glucose tolerance test Impaired glucose tolerance test Benign essential hypertension Essential hypertension, benign Annual physical exam Routine general medical examination at a health care facility Screening for lipid disorders Dizziness- Primary Dizziness and giddiness Benign essential hypertension Essential hypertension, benign Metabolic syndrome Dysmetabolic Syndrome X Benign essential hypertension- Primary Essential hypertension, benign Uncontrolled diabetes mellitus with hyperglycemia, without long-term current use of insulin (HCC) Severe persistent asthma, uncomplicated (HCC) Type 2 diabetes mellitus with diabetic nephropathy (HCC) Type 2 diabetes mellitus with other specified complication (HCC) Hyperlipidemia, unspecified Slow transit constipation Morbid obesity (CMS-HCC) Morbid obesity Intertrigo- Primary Other specified erythematous condition Hypertriglyceridemia Pure hyperglyceridemia Uncontrolled diabetes mellitus with hyperglycemia, without long-term current use of insulin (HCC) Type 2 diabetes mellitus with diabetic nephropathy, without long-term current use of insulin (HCC) Morbid obesity (CMS-HCC) Morbid obesity documented in this encounter [facility] HealthcareEvaluation note* Diagnosis Uncontrolled diabetes mellitus with hyperglycemia, without long-term current use of insulin (HCC)- Primary Type 2 diabetes mellitus with other specified complication, without long-term current use of insulin (HCC) Primary hypertension Unspecified essential hypertension Morbid obesity (CMS-HCC) Morbid obesity Morbid obesity ([facility]-HCC)- Primary Morbid obesity Encounter for screening mammogram for malignant neoplasm of breast Uncontrolled diabetes mellitus with hyperglycemia, without long-term current use of insulin (HCC) Morbid obesity (CMS-HCC) Morbid obesity Upper respiratory tract infection, unspecified type- Primary Type 2 diabetes mellitus with other specified complication, without long-term current use of insulin (HCC) Primary hypertension Unspecified essential hypertension Uncontrolled diabetes mellitus with hyperglycemia, without long-term current use of insulin (HCC) Morbid obesity (CMS-HCC) Morbid obesity Type 2 diabetes mellitus with hyperglycemia, without long-term current use of insulin (HCC) Morbid (severe) obesity due to excess calories (E66.01) Body mass index [BMI] 50.0-59.9, adult (Z68.43) Uncontrolled diabetes mellitus with hyperglycemia, without long-term current use of insulin (HCC) Morbid obesity (CMS-HCC) Morbid obesity Abnormal glucose tolerance test Impaired glucose tolerance test Benign essential hypertension Essential hypertension, benign Annual physical exam Routine general medical examination at a health care facility Screening for lipid disorders Dizziness- Primary Dizziness and giddiness Benign essential hypertension Essential hypertension, benign Metabolic syndrome Dysmetabolic Syndrome X Benign essential hypertension- Primary Essential hypertension, benign Uncontrolled diabetes mellitus with hyperglycemia, without long-term current use of insulin (HCC) Severe persistent asthma, uncomplicated (HCC) Type 2 diabetes mellitus with diabetic nephropathy (HCC) Type 2 diabetes mellitus with other specified complication (HCC) Hyperlipidemia, unspecified Slow transit constipation Morbid obesity (CMS-HCC) Morbid obesity Intertrigo- Primary Other specified erythematous condition Hypertriglyceridemia Pure hyperglyceridemia Uncontrolled diabetes mellitus with hyperglycemia, without long-term current use of insulin (HCC) Type 2 diabetes mellitus with diabetic nephropathy, without long-term current use of insulin (HCC) Morbid obesity (CMS-HCC) Morbid obesity Uncontrolled diabetes mellitus with hyperglycemia, without long-term current use of insulin (HCC) Morbid obesity (CMS-HCC) Morbid obesity documented in this encounter [facility] HealthcareEvaluation note* Diagnosis Uncontrolled diabetes mellitus with hyperglycemia, without long-term current use of insulin (HCC)- Primary Type 2 diabetes mellitus with other specified complication, without long-term current use of insulin (HCC) Primary hypertension Unspecified essential hypertension Morbid obesity (CMS-HCC) Morbid obesity Morbid obesity ([facility]-HCC)- Primary Morbid obesity Encounter for screening mammogram for malignant neoplasm of breast Uncontrolled diabetes mellitus with hyperglycemia, without long-term current use of insulin (HCC) Morbid obesity ([facility]-HCC) Morbid obesity Upper respiratory tract infection, unspecified type- Primary Type 2 diabetes mellitus with other specified complication, without long-term current use of insulin (HCC) Primary hypertension Unspecified essential hypertension Uncontrolled diabetes mellitus with hyperglycemia, without long-term current use of insulin (HCC) Morbid obesity (CMS-HCC) Morbid obesity Type 2 diabetes mellitus with hyperglycemia, without long-term current use of insulin (HCC) Morbid (severe) obesity due to excess calories (E66.01) Body mass index [BMI] 50.0-59.9, adult (Z68.43) Uncontrolled diabetes mellitus with hyperglycemia, without long-term current use of insulin (HCC) Morbid obesity ([facility]-HCC) Morbid obesity Abnormal glucose tolerance test Impaired glucose tolerance test Benign essential hypertension Essential hypertension, benign Annual physical exam Routine general medical examination at a health care facility Screening for lipid disorders Dizziness- Primary Dizziness and giddiness Benign essential hypertension Essential hypertension, benign Metabolic syndrome Dysmetabolic Syndrome X Benign essential hypertension- Primary Essential hypertension, benign Uncontrolled diabetes mellitus with hyperglycemia, without long-term current use of insulin (HCC) Severe persistent asthma, uncomplicated (HCC) Type 2 diabetes mellitus with diabetic nephropathy (HCC) Type 2 diabetes mellitus with other specified complication (HCC) Hyperlipidemia, unspecified Slow transit constipation Morbid obesity (CMS-HCC) Morbid obesity Intertrigo- Primary Other specified erythematous condition Hypertriglyceridemia Pure hyperglyceridemia Uncontrolled diabetes mellitus with hyperglycemia, without long-term current use of insulin (HCC) Type 2 diabetes mellitus with diabetic nephropathy, without long-term current use of insulin (HCC) Morbid obesity (CMS-HCC) Morbid obesity Uncontrolled diabetes mellitus with hyperglycemia, without long-term current use of insulin (HCC) Morbid obesity ([facility]-HCC) Morbid obesity documented in this encounter [facility] HealthcareReason for visit Narrative* OBGYN (Routine) - Closed Specialty Diagnoses / Procedures Referred By Paulo galloway Referred To Contact Obstetrics and Gynecology Diagnoses Encounter for removal and reinsertion of intrauterine contraceptive device Procedures NH LEVONORGESTREL IU 52MG 8 YR NH INSERTION INTRAUTERINE DEVICE IUD NH REMOVAL INTRAUTERINE DEVICE IUD Song Tomas MD [address] [address] Phone: tel: fax: Song Tomas MD [address] [facility] [address] [place] [address] Phone: tel: fax: Referral ID Status Reason Start Date Expiration Date V isits Requested Visits Authorized [id number] Closed Continuity of Care 07/02/2024 12/29/2024 1 1 [facility] Healthcare Summary Purpose Family History No Family History [...] content) DATE CREATED AUTHOR 01/24/[address] [facility] pital DATE CREATED AUTHOR AUTHOR'S ORGANIZ ATION 06/03/2021 [facility] dical Specialist DATE CREATED AUTHOR AUTHOR'S ORGANIZ ATION 02/24/2023 [facility] DATE CREATED AUTHOR AUTHOR'S ORGANIZ ATION 07/18/2024 [facility] DATE CREATED AUTHOR AUTHOR'S ORGANIZ ATION 01/20/2025 [facility] dical Specialists [facility] Care Teams (unrecognized sec tion and content) Team Status: Active Member Role Status Dates Shan Castillo MD Primary Care Provider Active Team Status: Inactive Member Role Status Dates Shan Castillo MD Primary Care Provider Active Eric Michael MD Attending Provider Active 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 Start Date End Date Shan Castillo MD [address] [facility] [address] [place] [address] PCP - General Family Medicine 11/01/22 Shan Castillo MD [address] [facility] [address] [place] [address] PCP - Marianne [employer] 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 Start Date End Date Shan Castillo MD [address] [facility] [address] [place] [address] PCP - General Family Medicine 11/01/22 Shan Castillo MD [address] [facility] [address] [place] [address] PCP - Marianne [employer] 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 Start Date End Date Shan Castillo MD [address] [facility] [address] [place] [address] PCP - General Family Medicine 11/01/22 Shan Castillo MD [address] [facility] [address] [place] [address] PCP - Marianne [employer] 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 Start Date End Date Shan Castillo MD [address] [facility] [address] [place] [address] PCP - General Family Medicine 11/01/22 Shan Castillo MD [address] [facility] [address] [place] [address] PCP - Marianne Commercial 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 Start Date End Date Shan Castillo MD [address] [facility] [address] [place] [address] PCP - General Family Medicine 11/01/22 Shan Castillo MD [address] [facility] [address] [place] [address] PCP - Marianne Commercial 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 Start Date End Date Shan Castillo MD [address] [facility] [address] [place] [address] PCP - General Family Medicine 11/01/22 Shan Castillo MD [address] [facility] [address] [place] [address] PCP - Marianne [employer] 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 Start Date End Date Shan Castillo MD [address] [facility] [address] [place] [address] PCP - General Family Medicine 11/01/22 Shan Castillo MD [address] [facility] [address] [place] [address] PCP - Marianne Commercial 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 Start Date End Date Shan Castillo MD [address] [facility] [address] [place] [address] PCP - General Family Medicine 11/01/22 Shan Castillo MD [address] [facility] [address] [place] [address] PCP - Marianne [employer] 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 Start Date End Date Shan Castillo MD [address] [facility] [address] [place] [address] PCP - General Family Medicine 11/01/22 Shan Castillo MD [address] [facility] [address] [place] [address] PCP - Marianne Commercial 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 Start Date End Date Shan Castillo MD [address] [facility] [address] [place] [address] PCP - General Family Medicine 11/01/22 Shan Castillo MD [address] [facility] [address] [place] [address] PCP - Marianne Commercial 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 Start Date End Date Shan Castillo MD [address] [facility] [address] [place] [address] PCP - General Family Medicine 11/01/22 Shan Castillo MD [address] [facility] [address] [place] [address] PCP - Marianne Commercial 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 Start Date End Date Shan Castillo MD [address] [facility] [address] [place] [address] PCP - General Family Medicine 11/01/22 Shan Castillo MD [address] [facility] [address] [place] [address] PCP - Marianne Commercial 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 Start Date End Date Shan Castillo MD [address] [facility] [address] [place] [address] PCP - General Family Medicine 11/01/22 Shan Castillo MD [address] [facility] [address] [place] [address] PCP - Marianne Commercial 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 Start Date End Date Shan Castillo MD [address] [facility] [address] [place] [address] PCP - General Family Medicine 11/01/22 Shan Castillo MD [address] [facility] [address] [place] [address] PCP - Marianne Commercial 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 Start Date End Date Shan Castillo MD [address] [facility] [address] [place] [address] PCP - General Family Medicine 11/01/22 Shan Castillo MD [address] [facility] [address] [place] [address] PCP - Marianne Commercial 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 Start Date End Date Shan Castillo MD [address] [facility] [address] [place] [address] PCP - General Family Medicine 11/01/22 Shan Castillo MD [address] [facility] [address] [place] [address] PCP - Marianne [employer] 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 Start Date End Date Shan Castillo MD [address] [facility] [address] [place] [address] PCP - General Family Medicine 11/01/22 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 Start Date End Date Shan Castillo MD [address] [facility] [address] [place] [address] PCP - General Family Medicine 11/01/22 Shan Castillo MD [address] [facility] [address] [place] [address] PCP - Marianne Commercial 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 Start Date End Date Shan Castillo MD [address] [facility] [address] [place] [address] PCP - General Family Medicine 11/01/22 Shan Castillo MD [address] [facility] [address] [place] [address] PCP - Marianne Commercial 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 Start Date End Date Shan Castillo MD [address] [facility] [address] [place] [address] PCP - General Family Medicine 11/01/22 Shan Castillo MD [address] [facility] [address] [place] [address] PCP - Marianne Commercial 06/26/23 Goals (unrecognized section and content) Goals may be documented in a n alternate section Reason for Visit (unrecogniz ed section and content) Reason Comments Weight Check Reason Onset Date Comments Med Refill 04/01/2024 Reason Onset Date Comments Med Refill 05/01/2024 Reason Onset Date Comments Med Refill 05/30/2024 Reason Onset Date Comments Med Refill 03/05/2024 Reason Comments Plantar Warts New pt presents toda y with Left lateral foot pain when walking, with shoe gear. No injuries. Has tried ibuprofen, massage, and lotions. Pt states she googled symptoms and is hoping it is warts. Last A1C on 03/26/24 was 4.9. Last saw PCP on 03/26/24. Reason Comments new patient Pt states she has se lizeth itchy eyes, watery ears, cough and nasal drip. She has winter asthma as well. Reason Onset Date Comments Med Refill 07/01/2024 Reason Comments Diabetes Last A1c was 5.3 Hypertension Weight Check Reason Comments Med Refill Reason Onset Date Comments Med Refill 10/07/2024 Reason Comments Med Refill Reason Comments Diabetes Last 5.1 Hypertension FOR RECORDS PERTAINING TO PATIENTS WHO ARE [...] BE BASED ON THE PRIMARY CLINICAL RECORDS. [employer] provides no warranty or guarantee of the accuracy or completeness of information in this document.
--- NOTE | 2025-03-12 00:18 | ED.CHESTPAI1 ---
HPI - Chest Pain General Chief Complaint: Chest Pain Stated Complaint: CHEST PAIN Time Seen by Provider: 03/11/25 23:58 Source: patient Mode of arrival: ambulance Limitations: no limitations History of Present Illness HPI narrative: This 44-year-old female with a history of diabetes, hypertension, high cholesterol and who is a smoker presents for evaluation of left-sided chest pain. The patient states that she was getting ready for bed and was sitting up watching the show when she started to have some discomfort in the left side of her chest. She said it was a dull aching sensation in her left anterior chest. She states she got up and went downstairs and went outside and had a cigarette to see if she could distract herself from the pain but it persisted. She then went back to bed and had ongoing pain. She states the pain lasted approximately 5 to 10 minutes but has since resolved. She denies any shortness of breath dizziness or diaphoresis. She states she has been fatigued over the course of the past 1 to 2 weeks. The patient has recently lost 80 pounds after being on a calorie restricted diet, exercising and using Adipex. She has no abdominal pain. She has no lower extremity pain or swelling. She denies any cough, fever or upper respiratory symptoms. Related Data Allergies Allergy/AdvReac Type Severity Reaction Status Date / Time No Known Drug Allergies Allergy Verified 03/12/25 00:13 Review of Systems ROS Status of ROS 10 or more systems reviewed and unremarkable except as noted in history and below PFSH PFSH Social History Little interest or pleasure in doing things: not at all Feeling down, depressed, or hopeless: not at all Exam Narrative Exam Narrative: Vital signs and Nursing Notes reviewed: Patient is afebrile, she is mildly tachycardic with a pulse of 101, blood pressure is mildly elevated at 148/94, she is not hypoxic with pulse ox of 97% on room air General: Awake, alert, oriented, no acute distress, lying comfortably on the stretcher HEENT: Normocephalic atraumatic, mucous membranes are moist and pink, eyes are clear, normal conjunctiva, vision is grossly intact Neck: Supple, no bruits, tenderness or pulsatile masses appreciated Chest: Lungs are clear to auscultation with good air entry, there is no wheezing rhonchi or rales appreciated no accessory muscle use, patient is speaking in complete sentences-no chest wall tenderness to palpation CVS: Regular rate and rhythm S1-S2, no murmurs rubs or gallops, pulses are brisk and equal bilaterally ABD: Soft, nondistended, nontender, no rebound guarding or rigidity, bowel sounds are normal, no pulsatile masses appreciated Extremities: Moving all extremities, no lower extremity tenderness or swelling noted, negative Homans' sign, pulses are brisk and equal bilaterally Skin: Normal in appearance without rash,pallor, petechiae or purpura Neuro: No focal deficits Constitutional Vital Signs, click to edit/add: Last Vital Signs Temp 98.6 F 03/12/25 00:14 Pulse 91 H 03/12/25 00:50 Resp 15 03/12/25 00:50 BP 120/88 03/12/25 00:30 Pulse Ox 96 03/12/25 00:50 O2 Del Method Room Air 03/12/25 00:14 Course Vital Signs Vital signs: Vital Signs Pulse Oximetry 98 03/11/25 23:58 Temperature 98.6 F 03/12/25 00:14 Pulse Rate 91 H 03/12/25 00:50 Respiratory Rate 15 03/12/25 00:50 Blood Pressure 120/88 03/12/25 00:30 Pulse Oximetry 96 03/12/25 00:50 Oxygen Delivery Method Room Air 03/12/25 00:14 MDM - Chest Pain MDM Narrative Medical decision making narrative: This 44-year-old female with a history of tobacco use, hypertension and diabetes who has recently lost 80 pounds after being on Adipex presents for evaluation of left-sided chest pain. She states when it started she had some tingling in her left hand otherwise there was no radiation. The patient states she was getting ready for bed when the pain started. It waxed and waned at home and she came to the emergency department. By the time she got here her pain had resolved. She denied any shortness of breath dizziness or syncope. She states recently she has been more fatigued than usual. She has had some dizzy spells in the morning after getting up as well. She denies any history of heart disease. EKG done upon arrival is a sinus rhythm at 88 bpm with a normal axis and no acute findings. 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 Cardiac workup was ordered. She has a normal white count and hemoglobin. Electrolytes are normal. Liver function test were normal. She has a normal troponin and normal D-dimer. Portable chest x-ray was ordered and does not show any acute findings. Her heart score is 1. The results of her labs and EKG and chest x-ray were discussed with her. She feels comfortable being discharged home at this time. She was encouraged to quit smoking. She is currently still working out and losing weight in conjunction with her family physician. She was encouraged return the emergency department anytime for worsening symptoms, dizziness syncope shortness of breath diaphoresis or any concerns. Lab Data Attestation: I reviewed the patient's lab results. Labs: Lab Results 03/12/25 Range/Units 00:10 WBC 9.8 (4.0-11.0) 10^3/uL RBC 4.35 (4.20-5.40) 10^6/uL Hgb 13.7 (12.0-16.0) g/dL Hct 40.4 (36.0-48.0) % MCV 92.9 (81.0-99.0) fL MCH 31.5 (26.7-34.0) pg MCHC 33.9 (29.9-35.2) g/dL RDW 12.6 (11.0-15.0) % Plt Count 183 (150-450) 10^3/uL MPV 9.2 L (9.5-13.5) fL Neut % (Auto) 51.2 (43.0-75.0) % Lymph % (Auto) 37.6 (20.5-60.0) % [place] % (Auto) 6.8 (1.7-12.0) % Eos % (Auto) 3.8 (0.9-7.0) % Baso % (Auto) 0.5 (0.2-2.0) % Neut # (Auto) 5.0 (1.4-6.5) 10^3/uL Lymph # (Auto) 3.7 (1.2-3.8) 10^3/uL [place] # (Auto) 0.7 (0.3-0.8) 10^3/uL Eos # (Auto) 0.4 (0.0-0.7) 10^3/uL Baso # (Auto) 0.1 (0.0-0.1) 10^3/uL Abs Immat Gran (auto) 0.01 (0.00-0.03) 10^3/uL Imm/Tot Granulo (auto) 0.1 (0.0-0.5) % D-Dimer 0.21 (<=0.59) mg/L FEU Sodium 142 (136-145) mmol/L Potassium 4.1 (3.5-5.1) mmol/L Chloride 108 H (98-107) mmol/L Carbon Dioxide 27.0 (21.0-32.0) mmol/L Anion Gap 11.1 BUN 19.0 H (7.0-18.0) mg/dL Creatinine 0.68 (0.55-1.02) mg/dL Est GFR ( Amer) >60 (>=60 mL/min/1.73m^2) Est GFR (Non-Af Amer) >60 (>=60 mL/min/1.73m^2) BUN/Creatinine Ratio 27.9 Glucose 104 (74-106) mg/dL Calcium 9.0 (8.5-10.1) mg/dL Total Bilirubin 0.3 (0.2-1.0) mg/dL AST 15 (15-37) U/L ALT 33 (14-59) U/L Alkaline Phosphatase 71 (46-116) U/L Troponin I High Sens 4.4 (4.0-51.3) pg/mL Total Protein 7.0 (6.4-8.2) g/dL Albumin 3.6 (3.4-5.0) g/dL Globulin 3.4 g/dL Albumin/Globulin Ratio 1.1 ECG Data Attestation: I personally reviewed and interpreted this ECG as follows: (Sinus rhythm 88 bpm, normal axis, normal intervals, no acute ST segment elevation or T wave inversion) Heart Score History: Slightly/Non-Suspicious ECG: Normal Age: <45 years Risk Factors: 1 or 2 Risk Factors Troponin: <Normal Limit Total Heart Score Recommendations & Risks:: 1 Discharge Plan Discharge Chief Complaint: Chest Pain Clinical Impression: Atypical chest pain Patient Disposition: Home, Self-Care Time of Disposition Decision: 01:27 Condition: Good Print Language: Japanese Instructions: Chest Pain (ED), Noncardiac Chest Pain (ED) Referrals: MERRY CASTILLO [Primary Care Provider, [facility]] - 1 week
[2025-03-12] MEDS: ASPIRIN 81 MG TAB.CHEW 324 MG PO (00:25)
[2025-03-12] MEDS: 0.9 % SODIUM CHLORIDE 1,000 ML 1000 ML IV (00:25)
[2025-03-12 00:47] LABS: Hematocrit 40.4 % (36.0-48.0); Hemoglobin 13.7 g/dL (12.0-16.0); Immature Granulocytes Abs Auto 0.01 10^3/uL (0.00-0.03); Immature Granulocytes Pct Auto 0.1 % (0.0-0.5); Lymphocytes Absolute Auto 3.7 10^3/uL (1.2-3.8); Mean Corpuscular HGB Conc 33.9 g/dL (29.9-35.2); Mean Corpuscular Hemoglobin 31.5 pg (26.7-34.0); Mean Corpuscular Volume 92.9 fL (81.0-99.0); Platelet Count 183 10^3/uL (150-450); Red Blood Count 4.35 10^6/uL (4.20-5.40); White Blood Count 9.8 10^3/uL (4.0-11.0)
[2025-03-12 01:06] LABS: Alanine Aminotransferase 33 U/L (14-59); Albumin Globulin Ratio 1.1; Albumin Level 3.6 g/dL (3.4-5.0); Alkaline Phosphatase 71 U/L (46-116); Anion Gap 11.1; Aspartate Amino Transferase 15 U/L (15-37); Blood Urea Nitrogen 19.0 mg/dL (7.0-18.0); Calcium 9.0 mg/dL (8.5-10.1); Carbon Dioxide 27.0 mmol/L (21.0-32.0); Chloride 108 mmol/L (98-107); Estimated GFR (African America >60 (>=60 mL/min/1.73m^2); Estimated GFR (Non-African Ame >60 (>=60 mL/min/1.73m^2); Globulin 3.4 g/dL; Glucose 104 mg/dL (74-106); Potassium 4.1 mmol/L (3.5-5.1); Sodium 142 mmol/L (136-145); Total Protein 7.0 g/dL (6.4-8.2)
--- NOTE | 2025-03-12 01:13 | XR_ITS ---
[facility] [place] [id number] Patient Name: LINDA GONZALEZ MRN: [id number] date: 1980 Sex: F Assigned Patient Location: ED.MAIN Current Patient Location: ED.MAIN Accession/Order Number: [id number] Exam Date: 03/12/2025 01:20 Report Date: 03/12/2025 08:20 At the request of: SASHA VILLALTA MD Procedure: XR chest 1V PORTABLE AP ERECT CHEST 0103 hours CLINICAL HISTORY: Acute left-sided chest pain COMPARISON: 07/19/2023 Assessment is slightly limited by large body habitus. The heart is within normal limits. There is no vascular congestion. No developing consolidation is seen. There is no effusion or pneumothorax. The osseous structures are intact. XR/XR chest 1V IMPRESSION: NO ACUTE FINDINGS Impression dictated by: Olga Greenberg M.D. 03/12/2025 8:20 AM Dictation Location: [place] [address] Electronically authenticated by: [id number] Y Date: 03/12/2025 08:20
--- NOTE | 2025-03-12 01:47 | PC.NURSE ---
i gave this patient verbal and written discharge orders and this patient voices yes to understanding these. at time of discharge this patient voices no concerns, needs and shows no signs of distress
== END 2025-03-12 01:47 | disposition home or self-care (01) ==
PROVIDERS: Emergency Provider Emergency Medicine; PCP Family Medicine
DX: R07.89 Other chest pain (principal); E11.9 Type 2 diabetes mellitus without complications; I10 Essential (primary) hypertension; E78.00 Pure hypercholesterolemia, unspecified; F17.210 Nicotine dependence, cigarettes, uncomplicated
CPT/HCPCS: 36415; 71045; 80053; 84484; 85025; 85378; 93005; 99285